=== PATIENT | male | born 1945 | race Two or more races ===

== ENCOUNTER 2017-01-23 13:07 | Inpatient (IN) | payer OTHER ==
[~2017-01-23] VITALS: Ht 172.7 cm; Wt 64.1 kg
[~2017-01-23 13:07] MED LIST: CARV6.2579 PO; Cyclobenzaprine Hcl PO; DOCU-144 PO; FAMO-95 PO; HYDR-3504 PO; LANT3I SC; LOSA1TAB20 PO; METF1000 PO; SIMV40TA7 PO; TAMS0.4C2 PO; TRAZ50TA18 PO
[2017-01-23 14:00] VITALS: BP 172/73; PULSE 72; RESP 20
[2017-01-23 14:30] VITALS: BP 157/75
[2017-01-23] MEDS ORDERED: NON-FORMULARY/PATIENT OWN MED (Simvastatin 40 MG) PO PRN (16:00)
[2017-01-23] MEDS ORDERED: CYCLOBENZAPRINE 10 MG TAB PO PRN (16:00)
[2017-01-23] MEDS ORDERED: NACL 0.9% 3 ML SYG IV SCH (16:30)
[2017-01-23] MEDS ORDERED: DOCUSATE SODIUM 100 MG CAP PO PRN (16:30)
[2017-01-23] MEDS ORDERED: BISACODYL 10 MG SUPP PR PRN (16:30)
[2017-01-23] MEDS ORDERED: GLUCOSE GEL 15 GRAM TUBE BUCCAL PRN (16:30)
[2017-01-23] MEDS ORDERED: MAGNESIUM HYDROXIDE 30ML CUP PO PRN (16:30)
[2017-01-23] MEDS ORDERED: GLUCOSE GEL 15 GRAM TUBE PO PRN ×2 (16:30)
[2017-01-23] MEDS ORDERED: GLUCAGON 1 MG INJ IM PRN (16:30)
[2017-01-23] MEDS ORDERED: DEXTROSE 50% 50 ML SYRINGE IV PRN ×2 (16:30)
[2017-01-23] MEDS ORDERED: ONDANSETRON 4 MG INJ IV PRN (16:30)
[2017-01-23] MEDS ORDERED: HYDROCODONE/APAP (5/325) TAB PO PRN (16:30)
[2017-01-23] MEDS ORDERED: APIXABAN 5 MG TABLET PO ONE (17:00)
--- NOTE | 2017-01-23 17:06 | RADRPT ---
PROCEDURE: XR Chest. CLINICAL INDICATION: Preoperative. Infected left foot. TECHNIQUE: Single frontal view. COMPARISON: None. FINDINGS: The lungs are clear. The heart size is normal. There is no pleural effusion. There is no pneumothorax. IMPRESSION: 1. Normal chest radiograph. RPTAT: QQ .Kee Odom MD, MD Date Time Electronically viewed and signed by .Kee Odom MD, on 01/23/2017 17:05 .R/
--- NOTE | 2017-01-23 17:18 | RADRPT ---
PROCEDURE: XR Left Foot. CLINICAL INDICATION: Infected left foot ulcer. TECHNIQUE: Three views. Frontal, lateral, and oblique. COMPARISON: None. FINDINGS: There is no fracture or dislocation. The soft tissues are normal. There are degenerative changes of the first metatarsal phalangeal joint with joint space narrowing a nd osteophytes. Vascular calcifications are present consistent with atherosclerosis. There is no lytic or blastic lesion. Surgical clips are present in the soft tissues of the ankle posterior laterally. IMPRESSION: 1. Degenerative changes of the first metatarsal phalangeal joint. 2. Prior surgery with clips noted in the soft tissues. 3. Atherosclerosis. RPTAT: QQ .Kee Odom MD, MD Date Time Electronically viewed and signed by .Kee Odom MD, on 01/23/2017 17:17 .R/
[2017-01-23 17:31] LABS: ADD UMIC NO; UR ASCORBIC ACID NEGATIVE (NEGATIVE); UR BILIRUBIN (Dip) NEGATIVE (NEGATIVE); UR BLOOD (Dip) NEGATIVE (NEGATIVE); UR CLARITY CLEAR (CLEAR); UR COLOR COLORLESS (YELLOW); UR GLUCOSE (Dip) NEGATIVE (NEGATIVE); UR KETONES (Dip) NEGATIVE (NEGATIVE); UR LEUKOCYTE ESTERASE (Dip) NEGATIVE Leu/ul (NEGATIVE); UR NITRITE (Dip) NEGATIVE (NEGATIVE); UR SPECIFIC GRAVITY (Dip) 1.005 (1.003-1.030); UR TOTAL PROTEIN (Dip) NEGATIVE (NEGATIVE); UR UROBILINOGEN (Dip) NEGATIVE (NEGATIVE)
[2017-01-23 17:32] LABS: BASOPHILS % 0.4 % (0.0-2.0); EOSINOPHILS # 0.5 10^3/ul (0.0-0.5); EOSINOPHILS % 6.9 % (0.0-7.0); HEMATOCRIT 34.5 % (42.0-52.0); HEMOGLOBIN 11.2 g/dl (14.0-18.0); LYMPHOCYTES % 26.8 % (15.0-51.0); MEAN CORPUSCULAR HEMOGLOBIN 29.4 pg (29.0-33.0); MEAN CORPUSCULAR HGB CONC 32.5 g/dl (32.0-37.0); MEAN CORPUSCULAR VOLUME 90.6 fl (82.0-101.0); MEAN PLATELET VOLUME 8.9 fl (7.4-10.4); MONOCYTE # 0.7 10^3/ul (0.3-0.9); NEUTROPHIL # 4.2 10^3/ul (1.6-7.5); NEUTROPHILS % 56.6 % (39.0-77.0); PLATELET COUNT 205 10^3/UL (140-415); RED BLOOD COUNT 3.81 10^6/ul (4.70-6.10); RED CELL DISTRIBUTION WIDTH 13.1 % (11.5-14.5); WHITE BLOOD COUNT 7.4 10^3/ul (4.8-10.8)
[2017-01-23 17:48] LABS: INR 1.02; PROTIME 13.4 Sec (12.2-14.2)
[2017-01-23 17:49] LABS: PARTIAL THROMBOPLASTIN TIME 34.8 Sec (25.0-35.0)
[2017-01-23 17:53] LABS: CALCIUM 9.2 mg/dl (8.4-10.2); CREATININE 0.79 mg/dl (0.61-1.24); POTASSIUM 4.5 mmol/L (3.5-5.1)
[2017-01-23] MEDS: INSULIN ASPART [NOVOLOG] 3 ML PEN SC SCH ×2 (18:04→21:00)
--- NOTE | 2017-01-23 18:25 | HP ---
Date/Time of Note Date/Time of Note DATE: 01/23/17 TIME: 18:09 Assessment/Plan VTE Prophylaxis VTE Prophylaxis Intervention: other (Patient has been on Eliquis) Assessment/Plan Assessment/Plan 71-year-old male with: 1. Ischemic pain left foot, second toe ischemia and nonhealing ulcer unfortunately failed attempt at salvation and the patient is scheduled for amputation of the second toe in a.m. by Dr. Watts N.p.o. after midnight Okay to proceed with procedure in a.m. from the medical standpoint, chest x-ray within normal, EKG stable and in chart. Vancomycin and Zosyn ordered Pain control Last dose of Eliquis was today. 2. Diabetes mellitus, continue current insulin regimen, hemoglobin A1c pending. Metformin will be held for now. 3. Hypertension: Continue outpatient medications 4. Hyperlipidemia: Continue statin therapy 5. Gastroesophageal reflux disease: New Pepcid Prophylaxis: Eliquis will be held after today's dose, continue Pepcid for GI prophylaxis Disposition: N.p.o. after midnight, OR in a.m. for amputation of second toe. HPI/ROS Admit Date/Time Admit Date/Time Jan 23, 2017 at 13:22 Hx of Present Illness Chief complaint: Left foot pain History of presenting illness: This is a 71-year-old male with history of diabetes mellitus, hypertension, hyperlipidemia, severe peripheral artery disease status post latest left femoral bypass surgery done approximately 3 months ago at [facility] by , patient was following up with Dr. Watts today at the amputation prevention clinic, and it is noted that he has ischemic pain in the left foot and unfortunately gangrene and ischemia of the left second toe, they have tried to salvage the left second toe over the past 3 weeks, he was put on antibiotics oral for the past 2 weeks and unfortunately the second toe could not be salvaged. Therefore the patient will be having surgical amputation of the second toe tomorrow. He is being admitted today for the procedure tomorrow. Patient already had cardiac clearance done 3 months ago at [facility] prior to his left femoral bypass procedure. He has not had any chest pain or new cardiac concerns since then, therefore he does not need a new cardiac clearance, chest x-ray was done here stable, EKG stable with old right bundle branch block and no acute changes. PT, PTT, INR within normal, renal function is stable and patient took his latest dose of Eliquis today, per vascular surgery it is okay for the patient to stop Eliquis after his dose today. Therefore from this medical standpoint the patient may probably proceed with a surgical procedure tomorrow morning He has been started also on vancomycin along with Zosyn. ROS Constitutional: no complaints Eyes: no complaints ENT: no complaints Respiratory: no complaints Cardiovascular: no complaints Gastrointestinal: no complaints Genitourinary: no complaints Musculoskeletal: other (Left second toe ulceration, decreased pulses) Neurologic: no complaints Endocrine: no complaints Lymphatic: no complaints Immunologic: no complaints PMH/Family/Social Past Medical History Severe peripheral arterial disease Hypertension Hyperlipidemia Diabetes mellitus, insulin requiring Esophageal reflux disease Left second toe chronic diabetic wound Past Surgical History Status post femoral bypass 3 last one 3 months ago Past Surgical Hx: other Social History Alcohol Use: none Smoking Status: Former smoker (Quit 2 years ago) Drug Use: none Exam/Review of Systems Exam Constitutional: alert, oriented, well developed Respiratory: clear to auscultation, normal air movement Cardiovascular: nl pulses, regular rate and rhythm Gastrointestinal: non-tender, soft Musculoskeletal: other (Left second toe with black toenail, ulceration noted, severe tenderness to palpation at the base of the second toe and forefoot) Extremities: other (Diminished pulses to the left forefoot, no clubbing or cyanosis noted) 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, nl mental status, nl speech, nl strength Labs Result Diagram: 01/23/17 1645 01/23/17 1645 Medications Medications Current Medications Carvedilol (Coreg) 6.25 mg BID PO ; Start 01/23/17 at 21:00 Docusate Sodium (Colace) 100 mg BID PO ; Start 01/23/17 at 21:00 Famotidine (Pepcid) 20 mg BID PO ; Start 01/23/17 at 21:00 Acetaminophen/ Hydrocodone Bitart ([place] (10/325)) 2 tab Q6H PRN PO PAIN LEVEL 6-10; Start 01/23/17 at 16:00 Trazodone HCl (Desyrel) 50 mg HS PRN PO SLEEP; Start 01/23/17 at 16:00 Losartan Potassium (Cozaar) 100 mg DAILY PO ; Start 01/24/17 at 09:00 Ondansetron HCl (Zofran Inj) 4 mg Q6H PRN IV NAUSEA AND/OR VOMITING; Start at 16:30 Acetaminophen (Tylenol Tab) 650 mg Q6H PRN PO PAIN LEVEL 1-3 OR FEVER; Start at 16:30 Acetaminophen/ Hydrocodone Bitart ([place] (5/325)) 1 tab Q6H PRN PO MODERATE PAIN LEVEL 4-6; Start 01/23/17 at 16:30 Acetaminophen/ Hydrocodone Bitart ([place] (5/325)) 2 tab Q6H PRN PO SEVERE PAIN LEVEL 7-10; Start 01/23/17 at 16:30 Morphine Sulfate (morphine) 2 mg Q4H PRN IV SEVERE PAIN LEVEL 7-10; Start 01/23 at 16:30 Docusate Sodium (Colace) 100 mg Q12H PRN PO CONSTIPATION; Start 01/23/17 at 16: 30 Magnesium Hydroxide (Milk Of Mag) 30 ml DAILY PRN PO CONSTIPATION; Start at 16:30 Bisacodyl (Dulcolax Supp) 10 mg DAILY PRN [place] CONSTIPATION; Start 01/23/17 at 16 :30 Miscellaneous Information 1 ea NOTE XX ; Start 01/23/17 at 16:30 Glucose (Glutose) 15 gm Q15M PRN PO DECREASED GLUCOSE; Start 01/23/17 at 16:30 Glucose (Glutose) 22.5 gm Q15M PRN PO DECREASED GLUCOSE; Start 01/23/17 at 16: 30 Dextrose (D50w Syringe) 25 ml Q15M PRN IV DECREASED GLUCOSE; Start 01/23/17 at 16:30 Dextrose (D50w Syringe) 50 ml Q15M PRN IV DECREASED GLUCOSE; Start 01/23/17 at 16:30 Glucagon (Glucagen) 1 mg Q15M PRN IM DECREASED GLUCOSE; Start 01/23/17 at 16:30 Glucose (Glutose) 15 gm Q15M PRN BUCCAL DECREASED GLUCOSE; Start 01/23/17 at 16 :30 Hydralazine HCl (Apresoline) 10 mg Q6H PRN IV ELEVATED BLOOD PRESSURE; Start at 16:30 Diagnostic Test (Pha) (Accu-Chek) 1 ea 02 XX ; Start 01/24/17 at 02:00 Diagnostic Test (Pha) (Accu-Chek) 1 ea 02 XX ; Start 01/24/17 at 02:00 Insulin Glargine (Lantus) 13 unit QHS SC ; Start 01/23/17 at 21:00 Tamsulosin HCl (Flomax) 0.4 mg QHS PO ; Start 01/23/17 at 21:00 Gabapentin (Neurontin) 600 mg BID PO ; Start 01/23/17 at 21:00 JOS HARDEN Jan 23, 2017 18:20
[2017-01-23] MEDS ORDERED: VANCOMYCIN IV PER PHARMACY XX SCH (18:30)
[2017-01-23] MEDS: morphine 2 MG INJ IV PRN (19:20)
[2017-01-23] MEDS ORDERED: VANCOMYCIN 1.25 GM in SOD CHLORIDE 0.9% 250 ML IVPB SCH (20:00)
[2017-01-23] MEDS ORDERED: INSULIN GLARGINE [LANtus] 3 ML PEN SC SCH (21:00)
[2017-01-23 21:09] VITALS: BP 155/71; RESP 19
--- NOTE | 2017-01-23 21:16 | CONS ---
Date/Time of Note Date/Time of Note DATE: 01/23/17 TIME: 21:15 Assessment/Plan Assessment/Plan Additional Assessment/Plan 1.Ischemic pain left foot, second toe ischemia/gangrene 2. PVD 3. Hypomagnesemia Plan: Plan for OR tomorrow for amputation Electrolytes stable BP stable continue current IVF post midnight will follow up Consultation Date/Type/Reason Admit Date/Time Jan 23, 2017 at 13:22 Date of Consultation: Jan 23, 2017 Type of Consultation: NEPHROLOGY Reason for Consultation plan for left Ray amputation of the left second toe. Referring Provider: JOS HARDEN Eyes: no complaints ENT: no complaints Respiratory: no complaints Cardiovascular: no complaints Gastrointestinal: no complaints Genitourinary: no complaints Musculoskeletal: other (Left second toe ulceration, decreased pulses) Neurologic: no complaints Lymphatic: no complaints Immunologic: no complaints Past Medical History Medical History: GERD, high cholesterol, hypertension Past Surgical History Past Surgical Hx: no surgical history, other Family History Significant Family History: no pertinent family hx Social History Alcohol Use: none Smoking Status: Former smoker (Quit 2 years ago) Drug Use: none Exam/Review of Systems Vital Signs Vitals Vital Signs Date Time Temp Pulse Resp B/P Pulse Ox O2 Delivery O2 Flow Rate FiO2 01/23/17 14:30 157/75 01/23/17 14:00 97.4 72 20 99 Room Air Exam Constitutional: alert Psych: no complaints Head: normocephalic Eyes: nl conjunctiva ENMT: nl external ears & nose Neck: non-tender, supple Respiratory: clear to auscultation, diminished breath sounds, normal air movement Cardiovascular: nl pulses, regular rate and rhythm Gastrointestinal: non-tender, soft Musculoskeletal: other (left foot gangrene ) 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, nl mental status, nl speech, nl strength Results Result Diagram: 01/23/17 1645 01/23/17 1645 Results 24 hrs Laboratory Tests Test 01/23/17 14:19 01/23/17 16:45 01/23/17 17:00 01/23/17 17:16 Bedside Glucose 115 80 White Blood Count 7.4 # Red Blood Count 3.81 L Hemoglobin 11.2 L Hematocrit 34.5 L Mean Corpuscular Volume 90.6 Mean Corpuscular Hemoglobin 29.4 Mean Corpuscular Hemoglobin Concent 32.5 Red Cell Distribution Width 13.1 Platelet Count 205 Mean Platelet Volume 8.9 # Neutrophils % 56.6 Lymphocytes % 26.8 Monocytes % 9.0 Eosinophils % 6.9 Basophils % 0.4 Nucleated Red Blood Cells % 0.0 Neutrophils # 4.2 Lymphocytes # 2.0 Monocytes # 0.7 Eosinophils # 0.5 Basophils # 0.0 Nucleated Red Blood Cells # 0.0 Prothrombin Time 13.4 Prothrombin Time Ratio 1.0 INR International Normalized Ratio 1.02 Activated Partial Thromboplast Time 34.8 Sodium Level 135 Potassium Level 4.5 Chloride Level 98 Carbon Dioxide Level 30 Anion Gap 12 Blood Urea Nitrogen 19 Creatinine 0.79 Glucose Level 81 Hemoglobin A1c 5.7 Calcium Level 9.2 Urine Color COLORLESS Urine Clarity CLEAR Urine pH 8.0 Urine Specific [place] 1.005 Urine Ketones NEGATIVE Urine Nitrite NEGATIVE Urine Bilirubin NEGATIVE Urine Urobilinogen NEGATIVE Urine Leukocyte Esterase NEGATIVE Urine Hemoglobin NEGATIVE Urine Glucose NEGATIVE Urine Total Protein NEGATIVE Medications Medications Current Medications Carvedilol (Coreg) 6.25 mg BID PO ; Start 01/23/17 at 21:00 Docusate Sodium (Colace) 100 mg BID PO ; Start 01/23/17 at 21:00 Famotidine (Pepcid) 20 mg BID PO ; Start 01/23/17 at 21:00 Acetaminophen/ Hydrocodone Bitart ([place] (10/325)) 2 tab Q6H PRN PO PAIN LEVEL 6-10; Start 01/23/17 at 16:00 Trazodone HCl (Desyrel) 50 mg HS PRN PO SLEEP; Start 01/23/17 at 16:00 Losartan Potassium (Cozaar) 100 mg DAILY PO ; Start 01/24/17 at 09:00 Ondansetron HCl (Zofran Inj) 4 mg Q6H PRN IV NAUSEA AND/OR VOMITING; Start at 16:30 Acetaminophen (Tylenol Tab) 650 mg Q6H PRN PO PAIN LEVEL 1-3 OR FEVER; Start at 16:30 Acetaminophen/ Hydrocodone Bitart ([place] (5/325)) 1 tab Q6H PRN PO MODERATE PAIN LEVEL 4-6 Last administered on 01/23/17t 18:09; Admin Dose 1 TAB; Start at 16:30 Acetaminophen/ Hydrocodone Bitart ([place] (5/325)) 2 tab Q6H PRN PO SEVERE PAIN LEVEL 7-10; Start 01/23/17 at 16:30 Morphine Sulfate (morphine) 2 mg Q4H PRN IV SEVERE PAIN LEVEL 7-10 Last administered on 01/23/17t 19:20; Admin Dose 2 MG; Start 01/23/17 at 16:30 Docusate Sodium (Colace) 100 mg Q12H PRN PO CONSTIPATION; Start 01/23/17 at 16: 30 Magnesium Hydroxide (Milk Of Mag) 30 ml DAILY PRN PO CONSTIPATION; Start at 16:30 Bisacodyl (Dulcolax Supp) 10 mg DAILY PRN [place] CONSTIPATION; Start 01/23/17 at 16 :30 Miscellaneous Information 1 ea NOTE XX ; Start 01/23/17 at 16:30 Glucose (Glutose) 15 gm Q15M PRN PO DECREASED GLUCOSE; Start 01/23/17 at 16:30 Glucose (Glutose) 22.5 gm Q15M PRN PO DECREASED GLUCOSE; Start 01/23/17 at 16: 30 Dextrose (D50w Syringe) 25 ml Q15M PRN IV DECREASED GLUCOSE; Start 01/23/17 at 16:30 Dextrose (D50w Syringe) 50 ml Q15M PRN IV DECREASED GLUCOSE; Start 01/23/17 at 16:30 Glucagon (Glucagen) 1 mg Q15M PRN IM DECREASED GLUCOSE; Start 01/23/17 at 16:30 Glucose (Glutose) 15 gm Q15M PRN BUCCAL DECREASED GLUCOSE; Start 01/23/17 at 16 :30 Hydralazine HCl (Apresoline) 10 mg Q6H PRN IV ELEVATED BLOOD PRESSURE; Start at 16:30 Diagnostic Test (Pha) (Accu-Chek) 1 ea 02 XX ; Start 01/24/17 at 02:00 Diagnostic Test (Pha) (Accu-Chek) 1 ea 02 XX ; Start 01/24/17 at 02:00 Insulin Glargine (Lantus) 13 unit QHS SC ; Start 01/23/17 at 21:00 Tamsulosin HCl (Flomax) 0.4 mg QHS PO ; Start 01/23/17 at 21:00 Gabapentin 600 mg 600 mg BID PO ; Start 01/23/17 at 21:00 Piperacillin Sod/ Tazobactam Sod 100 ml @ 200 mls/hr Q8 IVPB ; Start 01/23/17 at 22:00 Vancomycin HCl 1.25 gm/Sodium Chloride 250 ml @ 83.333 mls/ hr ONCE IVPB ; Start 01/23/17 at 20:00; Stop 01/23/17 at 22:00 Vancomycin HCl/ Sodium Chloride (Vancocin/NS) 150 ml @ 75 mls/hr Q12H IVPB ; Start 01/24/17 at 08:00 Influenza Virus Vaccine (Fluzone) 0.5 ml ONCE ONCE IM* ; Start 01/24/17 at 20:00 ; Stop 01/24/17 at 20:01 SARAVANAN JEFFERY MD Jan 23, 2017 21:16
[2017-01-23] MEDS: TAMSULOSIN (SR) 0.4 MG CAP PO SCH (21:23)
[2017-01-23] MEDS: HYDROCODONE/APAP (10/325) TAB PO PRN (21:23)
[2017-01-23] MEDS: GABAPENTIN 300 MG CAP PO SCH (21:25)
[2017-01-23] MEDS: FAMOTIDINE 20 MG TAB PO SCH (21:25)
[2017-01-23] MEDS: INSULIN GLARGINE [LANtus] 3 ML PEN SC SCH (21:43)
[2017-01-23] MEDS: traZODone 50 MG TAB PO PRN (21:44)
[2017-01-23] MEDS: DOCUSATE SODIUM 100 MG CAP PO SCH (21:45)
[2017-01-23] MEDS: ACETAMINOPHEN 325 MG TAB PO PRN (22:48)
[2017-01-23] MEDS: ACCU-CHEK XX SCH (23:37)
[2017-01-24] VITALS (16 sets, daily range): BP systolic 98–160; BP diastolic 51–70; PULSE 53–75; RESP 14–24
[2017-01-24] MEDS: PIPER-TAZO 3.375 GM IV (PMX) 100 ML IVPB SCH ×4 (00:46→22:34)
[2017-01-24] MEDS: morphine 2 MG INJ IV PRN ×3 (00:52→19:58)
[2017-01-24] MEDS: ACCU-CHEK XX SCH (02:00)
[2017-01-24 06:22] LABS: BASOPHILS % 0.5 % (0.0-2.0); EOSINOPHILS # 0.6 10^3/ul (0.0-0.5); EOSINOPHILS % 9.6 % (0.0-7.0); HEMATOCRIT 33.6 % (42.0-52.0); HEMOGLOBIN 10.9 g/dl (14.0-18.0); LYMPHOCYTES # 1.7 10^3/ul (0.8-2.9); LYMPHOCYTES % 28.7 % (15.0-51.0); MEAN CORPUSCULAR HEMOGLOBIN 29.9 pg (29.0-33.0); MEAN CORPUSCULAR HGB CONC 32.4 g/dl (32.0-37.0); MEAN CORPUSCULAR VOLUME 92.1 fl (82.0-101.0); MEAN PLATELET VOLUME 8.9 fl (7.4-10.4); MONOCYTE # 0.6 10^3/ul (0.3-0.9); MONOCYTES % 10.4 % (0.0-11.0); NEUTROPHILS % 50.5 % (39.0-77.0); PLATELET COUNT 184 10^3/UL (140-415); RED BLOOD COUNT 3.65 10^6/ul (4.70-6.10); RED CELL DISTRIBUTION WIDTH 13.2 % (11.5-14.5); WHITE BLOOD COUNT 5.9 10^3/ul (4.8-10.8)
[2017-01-24 06:54] LABS: CALCIUM 8.7 mg/dl (8.4-10.2); CREATININE 0.79 mg/dl (0.61-1.24); MAGNESIUM 1.6 mg/dl (1.7-2.5); PHOSPHORUS 4.8 mg/dl (2.5-4.9)
--- NOTE | 2017-01-24 07:57 | RADRPT ---
PROCEDURE: US Lower extremity arterial. CLINICAL INDICATION: Bilateral lower extremity pain. Infected left foot with ulcer. Left common fe moral to posterior tibial bypass graft. TECHNIQUE: Multiple sonographic images of the bilateral lower extremity arteries were obtained uti lizing olivares scale, color-flow and doppler imaging. Bilateral ABIs were performed. COMPARISON: 11/07/2016 FINDINGS: Diffuse atherosclerotic plaque. Velocities and waveforms were obtained as described below. RIGHT LEG: Right common femoral artery: 109 cm/s; biphasic waveforms Right proximal superficial femoral artery: 117 cm/s; biphasic waveforms Right mid superficial femoral artery: 140 cm/s; biphasic waveforms Right distal superficial femoral artery: 98 cm/s; monophasic waveforms Right popliteal artery: 67 cm/s; monophasic waveforms Right posterior tibial artery: 62 cm/s; monophasic waveforms Right dorsalis pedis artery: 47 cm/s; monophasic waveforms Right SARABJIT: 0.8 LEFT LEG: Left common femoral artery: 64 cm/s; monophasic waveforms Left proximal superficial femoral artery: 34 cm/s; monophasic waveforms Left mid superficial femoral artery: Occluded Left distal superficial femoral artery: Occluded Left popliteal artery: Occluded Left posterior tibial artery: Not detected proximally, 74 cm/sec with monophasic waveforms beyond t he graft Left dorsalis pedis artery: 17 cm/s; monophasic waveforms Left femoral artery and to posterior tibial artery bypass graft: Proximal : 218 cm/s; monophasic waveforms Middle : 96 cm/s; monophasic waveforms Distal : 155 cm/s; monophasic waveforms Left SARABJIT: 0.8 IMPRESSION: 1. Patent left common femoral artery to posterior tibial artery bypass with monophasic flow and sign ificant focal stenosis proximally. 2. [place] left superficial femoral artery, popliteal artery and proximal posterior tibial artery are occluded. 3. Low velocity monophasic flow in the left dorsalis pedis artery. 4. Moderate to severe stenosis in the right middle superficial femoral artery with monophasic wave f orms distally. 5. Patent right lower extremity arteries. RPTAT:AAJJ Physician Niru Date Time Electronically viewed and signed by Becky Ferreira Physician on 01/24/2017 07:57 /
[2017-01-24] MEDS: INSULIN ASPART [NOVOLOG] 3 ML PEN SC SCH ×4 (08:00→20:09)
[2017-01-24] MEDS: VANCOMYCIN 750 MG in SOD CHLORIDE 0.9% 150 ML IVPB SCH ×2 (08:09→19:58)
[2017-01-24] MEDS ORDERED: FAMOTIDINE 20 MG INJ IV SCH (09:00)
[2017-01-24] MEDS ORDERED: TAMSULOSIN (SR) 0.4 MG CAP PO SCH (09:00)
[2017-01-24] MEDS ORDERED: INSULIN GLARGINE [LANtus] 3 ML PEN SC SCH (09:00)
--- NOTE | 2017-01-24 09:31 | HPN ---
Date/Time of Note Date/Time of Note DATE: 01/24/17 TIME: 09:30 Interval H&P Admission Note Pt. seen H&P reviewed: No system changes BESS PENA MD Jan 24, 2017 09:30
--- NOTE | 2017-01-24 09:34 | CONS ---
Date/Time of Note Date/Time of Note DATE: 01/24/17 TIME: 09:33 Consultation Date/Type/Reason Admit Date/Time Jan 23, 2017 at 13:22 Hx of Present Illness Dear Doctors: Mr. 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 As of recent, patient undergone a complicated inflow and outflow procedure for left lower extremity revascularization for limb salvage and has been coming along well from the standpoint of the bypass. The patient's rest pain has resolved and has been doing well with his 2nd gangrene toe wound healing. Unfortunately, over the past week and a half he has developed a new 2nd toe swelling, redness, erythema and pain in his left foot, which we started him on trial of p.o. antibiotics. It seems to have not been improving his symptoms. The patient still continued to have pain and erythema despite being on p.o. antibiotics. The patient has reported some chills. No fevers. Denies rest pain or claudication for now. PHYSICAL EXAMINATION: GENERAL APPEARANCE: Alert, oriented x3. CHEST: Clear to auscultation bilaterally. CARDIAC: S1-S2 present. ABDOMEN: Soft, nontender, nondistended. Bowel sounds positive. HEENT: Normocephalic, atraumatic. PERRLA. EOMI. Mucosa moist. NECK: Supple. No carotid bruit. LOWER EXTREMITIES: Right lower extremity: Palpable femoral pulse. Nonpalpable pedal pulse. Motor AND sensory intact. Capillary refill 3-4 seconds. Left lower extremity: Palpable femoral pulse. Palpable graft below the knee. Dopplerable biphasic signal of the bypass. Dopplerable biphasic signal of the inflow bypass from the external iliac to the 2nd perforating branch of the profunda. Left 2nd toe with gangrene in the mid aspect with erythema, edema and pain in that area. ASSESSMENT AND PLAN: 1. Bilateral lower extremity atherosclerosis with left lower extremity gangrene: It seems the patient has been doing well from the standpoint of the left lower extremity revascularization. Unfortunately, the patient has developed a 2nd toe diabetic foot infection, in which he will require an amputation of the 2nd toe at this point. We have given the patient adequate amount of time for wound healing and p.o. antibiotics that seem to be refractory. The patient will be admitted for intravenous antibiotics and amputation of that 2nd toe. 2. Optimize vascular status (blood pressure meds, diet, nutrition, exercise, sugar control, antiplatelets). Discussed findings, plan and management with the patient. He understands. Thank you for allowing us to partake in the care of your patient. Please call with any questions. Eyes: no complaints ENT: no complaints Respiratory: no complaints Cardiovascular: no complaints Gastrointestinal: no complaints Genitourinary: no complaints Musculoskeletal: other (Left second toe ulceration, decreased pulses) Neurologic: no complaints Lymphatic: no complaints Immunologic: no complaints Past Surgical History Past Surgical Hx: other Social History Alcohol Use: none Smoking Status: Former smoker (Quit 2 years ago) Drug Use: none Exam/Review of Systems Vital Signs Vitals Vital Signs Date Time Temp Pulse Resp B/P Pulse Ox O2 Delivery O2 Flow Rate FiO2 01/24/17 08:00 98.8 62 18 114/52 96 01/23/17 14:00 Room Air Intake and Output 01/23/17 01/23/17 01/24/17 15:00 23:00 07:00 Intake Total 0 ml 550 ml Output Total 500 ml 720 ml Balance -500 ml -170 ml Results Result Diagram: 01/24/17 0533 01/24/17 0533 Results 24 hrs Laboratory Tests Test 01/23/17 14:19 01/23/17 16:45 01/23/17 17:00 01/23/17 17:16 Bedside Glucose 115 80 White Blood Count 7.4 # Red Blood Count 3.81 L Hemoglobin 11.2 L Hematocrit 34.5 L Mean Corpuscular Volume 90.6 Mean Corpuscular Hemoglobin 29.4 Mean Corpuscular Hemoglobin Concent 32.5 Red Cell Distribution Width 13.1 Platelet Count 205 Mean Platelet Volume 8.9 # Neutrophils % 56.6 Lymphocytes % 26.8 Monocytes % 9.0 Eosinophils % 6.9 Basophils % 0.4 Nucleated Red Blood Cells % 0.0 Neutrophils # 4.2 Lymphocytes # 2.0 Monocytes # 0.7 Eosinophils # 0.5 Basophils # 0.0 Nucleated Red Blood Cells # 0.0 Prothrombin Time 13.4 Prothrombin Time Ratio 1.0 INR International Normalized Ratio 1.02 Activated Partial Thromboplast Time 34.8 Sodium Level 135 Potassium Level 4.5 Chloride Level 98 Carbon Dioxide Level 30 Anion Gap 12 Blood Urea Nitrogen 19 Creatinine 0.79 Glucose Level 81 Hemoglobin A1c 5.7 Calcium Level 9.2 Urine Color COLORLESS Urine Clarity CLEAR Urine pH 8.0 Urine Specific [place] 1.005 Urine Ketones NEGATIVE Urine Nitrite NEGATIVE Urine Bilirubin NEGATIVE Urine Urobilinogen NEGATIVE Urine Leukocyte Esterase NEGATIVE Urine Hemoglobin NEGATIVE Urine Glucose NEGATIVE Urine Total Protein NEGATIVE Test 01/23/17 21:40 01/24/17 05:33 01/24/17 08:07 01/24/17 08:34 Bedside Glucose 179 67 L 173 White Blood Count 5.9 # Red Blood Count 3.65 L Hemoglobin 10.9 L Hematocrit 33.6 L Mean Corpuscular Volume 92.1 Mean Corpuscular Hemoglobin 29.9 Mean Corpuscular Hemoglobin Concent 32.4 Red Cell Distribution Width 13.2 Platelet Count 184 Mean Platelet Volume 8.9 Neutrophils % 50.5 Lymphocytes % 28.7 Monocytes % 10.4 Eosinophils % 9.6 H Basophils % 0.5 Nucleated Red Blood Cells % 0.0 Neutrophils # 3.0 Lymphocytes # 1.7 Monocytes # 0.6 Eosinophils # 0.6 H Basophils # 0.0 Nucleated Red Blood Cells # 0.0 Sodium Level 138 Potassium Level 4.0 Chloride Level 102 Carbon Dioxide Level 29 Anion Gap 11 Blood Urea Nitrogen 18 Creatinine 0.79 Glucose Level 74 Calcium Level 8.7 Phosphorus Level 4.8 Magnesium Level 1.6 L Medications Medications Current Medications Carvedilol (Coreg) 6.25 mg BID PO Last administered on 01/23/17 21:24; Admin Dose 6.25 MG; Start 01/23/17 at 21:00 Docusate Sodium (Colace) 100 mg BID PO Last administered on 01/23/17 21:45; Admin Dose 100 MG; Start 01/23/17 at 21:00 Famotidine (Pepcid) 20 mg BID PO Last administered on 01/23/17 21:25; Admin Dose 20 MG; Start 01/23/17 at 21:00 Acetaminophen/ Hydrocodone Bitart ([place] (10)) 2 tab Q6H PRN PO PAIN LEVEL 6-10 Last administered on 01/23/17 21:23; Admin Dose 2 TAB; Start 01/23/17 at 16:00 Trazodone HCl (Desyrel) 50 mg HS PRN PO SLEEP Last administered on 01/23/17 21 :44; Admin Dose 50 MG; Start 01/23/17 at 16:00 Losartan Potassium (Cozaar) 100 mg DAILY PO ; Start 01/24/17 at 09:00 Ondansetron HCl (Zofran Inj) 4 mg Q6H PRN IV NAUSEA AND/OR VOMITING; Start at 16:30 Acetaminophen (Tylenol Tab) 650 mg Q6H PRN PO PAIN LEVEL 1-3 OR FEVER Last administered on 01/23/17 22:48; Admin Dose 650 MG; Start 01/23/17 at 16:30 Acetaminophen/ Hydrocodone Bitart ([place] (5/325)) 1 tab Q6H PRN PO MODERATE PAIN LEVEL 4-6 Last administered on 01/23/17 18:09; Admin Dose 1 TAB; Start at 16:30 Acetaminophen/ Hydrocodone Bitart ([place] (5/325)) 2 tab Q6H PRN PO SEVERE PAIN LEVEL 7-10; Start 01/23/17 at 16:30 Morphine Sulfate (morphine) 2 mg Q4H PRN IV SEVERE PAIN LEVEL 7-10 Last administered on 01/24/17 04:49; Admin Dose 2 MG; Start 01/23/17 at 16:30 Docusate Sodium (Colace) 100 mg Q12H PRN PO CONSTIPATION; Start 01/23/17 at 16: 30 Magnesium Hydroxide (Milk Of Mag) 30 ml DAILY PRN PO CONSTIPATION; Start at 16:30 Bisacodyl (Dulcolax Supp) 10 mg DAILY PRN [place] CONSTIPATION; Start 01/23/17 at 16 :30 Miscellaneous Information 1 ea NOTE XX ; Start 01/23/17 at 16:30 Glucose (Glutose) 15 gm Q15M PRN PO DECREASED GLUCOSE; Start 01/23/17 at 16:30 Glucose (Glutose) 22.5 gm Q15M PRN PO DECREASED GLUCOSE; Start 01/23/17 at 16: 30 Dextrose (D50w Syringe) 25 ml Q15M PRN IV DECREASED GLUCOSE Last administered on 01/24/17 08:12; Admin Dose 25 ML; Start 01/23/17 at 16:30 Dextrose (D50w Syringe) 50 ml Q15M PRN IV DECREASED GLUCOSE; Start 01/23/17 at 16:30 Glucagon (Glucagen) 1 mg Q15M PRN IM DECREASED GLUCOSE; Start 01/23/17 at 16:30 Glucose (Glutose) 15 gm Q15M PRN BUCCAL DECREASED GLUCOSE; Start 01/23/17 at 16 :30 Hydralazine HCl (Apresoline) 10 mg Q6H PRN IV ELEVATED BLOOD PRESSURE; Start at 16:30 Diagnostic Test (Pha) (Accu-Chek) 1 ea 02 XX ; Start 01/24/17 at 02:00 Diagnostic Test (Pha) (Accu-Chek) 1 ea 02 XX ; Start 01/24/17 at 02:00 Insulin Glargine (Lantus) 13 unit QHS SC Last administered on 01/23/17 21:43; Admin Dose 13 UNIT; Start 01/23/17 at 21:00 Tamsulosin HCl (Flomax) 0.4 mg QHS PO Last administered on 01/23/17 21:23; Admin Dose 0.4 MG; Start 01/23/17 at 21:00 Gabapentin 600 mg 600 mg BID PO Last administered on 01/23/17 21:25; Admin Dose 600 MG; Start 01/23/17 at 21:00 Piperacillin Sod/ Tazobactam Sod 100 ml @ 200 mls/hr Q8 IVPB Last administered on 01/24/17 05:46; Admin Dose 200 MLS/HR; Start 01/23/17 at 22:00 Vancomycin HCl/ Sodium Chloride (Vancocin/NS) 150 ml @ 75 mls/hr Q12H IVPB Last administered on 01/24/17 08:09; Admin Dose 75 MLS/HR; Start 01/24/17 at 08 :00 Influenza Virus Vaccine (Fluzone) 0.5 ml ONCE ONCE IM* ; Start 01/24/17 at 20:00 ; Stop 01/24/17 at 20:01 BESS PENA MD Jan 24, 2017 09:34
[2017-01-24] MEDS ORDERED: LIDOCAINE 1% (MPF) 30 ML INJ ONE (09:37)
[2017-01-24] MEDS ORDERED: POLYMYXIN/BACITRACIN 1L IRRIG ONE (09:37)
--- NOTE | 2017-01-24 09:37 | SIPON ---
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
[2017-01-24] MEDS ORDERED: MAGNESIUM SULFATE 2 GM/50 ML 50 ML IVPB ONE (10:00)
[2017-01-24] MEDS ORDERED: ACETAMINOPHEN 1000MG/100ML IV 100 ML IVPB ONE (11:00)
[2017-01-24] MEDS ORDERED: LIDOCAINE 1% (MPF) 5 ML VIAL SC ONE (11:00)
--- NOTE | 2017-01-24 11:11 | OPR ---
DATE OF OPERATION: 01/24/2017 PREOPERATIVE DIAGNOSIS: Left second toe gangrene. POSTOPERATIVE DIAGNOSIS: Left second toe gangrene. OPERATIVE PROCEDURE: Ray amputation of the left second toe. COMPLICATIONS: None. ANESTHESIA: Local. SPECIMENS: Sent to pathology. ESTIMATED BLOOD LOSS: Minimal. INDICATIONS: This is a 71-year-old gentleman who presented to us with left lower extremity rest pain and second toe gangrene, in which he had undergone multiple left lower extremity revascularizations with outside hospitals. Patient was evaluated by us for tertiary opinion, in which he underwent prolonged left lower extremity limb salvage procedure involving inflow and outflow bypass. The patient postoperatively has done well over the past 3 months. His left lower extremity rest pain has resolved. He has become ambulatory. He has been able to quite change his quality of life. Unfortunately the second toe gangrene had been treated locally with local wound care and p.o. antibiotics in order to salvage. However, the patient's left second toe had tendon exposed and had recurrence of infection, which was refractory to p.o. antibiotics and required to be amputated. Alternatives, risks, and benefits were discussed with the patient involving, but not limited to, myocardial infarction, , stroke, bleeding, infection, nerve injury, limb loss, and patient has agreed to proceed. DESCRIPTION OF PROCEDURE: The patient was brought into the operating room and placed in supine position. His arms were placed at 80 degrees and normal bony prominences were padded. Anesthesia team had placed appropriate lines. Time-out and the correct side was marked and confirmed. The patient's left lower extremity was circumferentially prepped and draped in usual standard sterile fashion. Using 20 mL of 1 percent lidocaine, local anesthesia was provided in the region of the left second toe. At this point, using a number 15 blade, circumferential incision was made around the base of the second toe. Upon the completion of that, using a rongeur, the bone was debrided down to the second metatarsal head. The cartilage was removed at that point and the patient's infected toe was removed. No pus was identified at the base of the wound and healthy tissue was identified with good bleeding. At this point, using a 3-0 nylon suture, the wound was closed. The wound was irrigated with saline as well prior to closure. Patient tolerated the procedure well, was taken to the postanesthesia care unit in stable condition. The wound was dressed with Xeroform, 4 x 4, Kerlix, and Andres wrap. Dictated By: Andrea Watts MD /[email or web address] /Document#: [id number] MTDD
[2017-01-24] MEDS: FAMOTIDINE 20 MG TAB PO SCH ×2 (12:46→20:20)
[2017-01-24] MEDS: DOCUSATE SODIUM 100 MG CAP PO SCH ×2 (12:46→19:59)
[2017-01-24] MEDS: GABAPENTIN 300 MG CAP PO SCH ×2 (12:47→19:58)
[2017-01-24] MEDS: LOSARTAN 50 MG TAB PO SCH (12:48)
[2017-01-24] MEDS: HYDROCODONE/APAP (5/325) TAB PO PRN ×2 (12:56→18:26)
--- NOTE | 2017-01-24 14:06 | RADRPT ---
Vent Rate: 59 bpm RR Interval: 0 msec LA Interval: 170 msec QRS Duration: 122 msec QT Interval: 452 msec QTC Interval: 447 msec P-R-T [place]: 54 - -6 - 54 degrees Sinus bradycardia Right bundle branch block Abnormal ECG Electronically Signed By: Pako Foy [id number]
--- NOTE | 2017-01-24 15:15 | PN ---
Date/Time of Note Date/Time of Note DATE: 01/24/17 TIME: 14:41 Assessment/Plan VTE Prophylaxis VTE Prophylaxis Intervention: SCD's Lines/Catheters IV Catheter Type (from Nrs): [place] Urinary Cath still in place: No Assessment/Plan Assessment/Plan 71-year-old male with: 1. Ischemic pain left foot, second toe ischemia/gangrene, s/p amputation of 2nd toe today POD#0 PICC line placement today Continue Vancomycin and Zosyn Pain control Eliquis was today. 2. Diabetes mellitus, continue current insulin regimen, A1c 5.7. Metformin will be held for now. 3. Hypertension: Continue outpatient medications 4. Hyperlipidemia: Continue statin therapy 5. Gastroesophageal reflux disease: Continue Pepcid Prophylaxis: Eliquis to be resumed in AM, continue Pepcid for GI prophylaxis Disposition: S/p amputation of 2nd left toe, follow up further recs from Vascular Surgery. Patient would like to go to a rehabilitation center, preferably [facility], at the time of discharge. Subjective 24 Hr Interval Summary Free Text/Dictation Patient doing well postoperatively, he is status post amputation of his left second toe this morning. No complaints and he reports less pain from his left foot. PICC line placement today, patient already expressed that he would want to go to a rehabilitation center, [facility] at the time of discharge, hopefully sometime this weekend. Exam/Review of Systems Vital Signs Vitals Vital Signs Date Time Temp Pulse Resp B/P Pulse Ox O2 Delivery O2 Flow Rate FiO2 01/24/17 11:29 98.6 53 16 140/62 96 Room Air Intake and Output 01/23/17 01/23/17 01/24/17 15:00 23:00 07:00 Intake Total 0 ml 550 ml Output Total 500 ml 720 ml Balance -500 ml -170 ml Exam Constitutional: alert, oriented, well developed Respiratory: clear to auscultation, normal air movement Cardiovascular: nl pulses, regular rate and rhythm Gastrointestinal: non-tender, soft Musculoskeletal: nl extremities to inspection, other (Patient has a bandage on his left foot) Neurological: [employer] II-XII intact, nl mental status, nl speech, nl strength Results Result Diagram: 01/24/17 0533 01/24/17 0533 Results 24 hrs Laboratory Tests Test 01/23/17 16:45 01/23/17 17:00 01/23/17 17:16 01/23/17 21:40 White Blood Count 7.4 # Red Blood Count 3.81 L Hemoglobin 11.2 L Hematocrit 34.5 L Mean Corpuscular Volume 90.6 Mean Corpuscular Hemoglobin 29.4 Mean Corpuscular Hemoglobin Concent 32.5 Red Cell Distribution Width 13.1 Platelet Count 205 Mean Platelet Volume 8.9 # Neutrophils % 56.6 Lymphocytes % 26.8 Monocytes % 9.0 Eosinophils % 6.9 Basophils % 0.4 Nucleated Red Blood Cells % 0.0 Neutrophils # 4.2 Lymphocytes # 2.0 Monocytes # 0.7 Eosinophils # 0.5 Basophils # 0.0 Nucleated Red Blood Cells # 0.0 Prothrombin Time 13.4 Prothrombin Time Ratio 1.0 INR International Normalized Ratio 1.02 Activated Partial Thromboplast Time 34.8 Sodium Level 135 Potassium Level 4.5 Chloride Level 98 Carbon Dioxide Level 30 Anion Gap 12 Blood Urea Nitrogen 19 Creatinine 0.79 Glucose Level 81 Hemoglobin A1c 5.7 Calcium Level 9.2 Urine Color COLORLESS Urine Clarity CLEAR Urine pH 8.0 Urine Specific [place] 1.005 Urine Ketones NEGATIVE Urine Nitrite NEGATIVE Urine Bilirubin NEGATIVE Urine Urobilinogen NEGATIVE Urine Leukocyte Esterase NEGATIVE Urine Hemoglobin NEGATIVE Urine Glucose NEGATIVE Urine Total Protein NEGATIVE Bedside Glucose 80 179 Test 01/24/17 05:33 01/24/17 08:07 01/24/17 08:34 01/24/17 10:31 White Blood Count 5.9 # Red Blood Count 3.65 L Hemoglobin 10.9 L Hematocrit 33.6 L Mean Corpuscular Volume 92.1 Mean Corpuscular Hemoglobin 29.9 Mean Corpuscular Hemoglobin Concent 32.4 Red Cell Distribution Width 13.2 Platelet Count 184 Mean Platelet Volume 8.9 Neutrophils % 50.5 Lymphocytes % 28.7 Monocytes % 10.4 Eosinophils % 9.6 H Basophils % 0.5 Nucleated Red Blood Cells % 0.0 Neutrophils # 3.0 Lymphocytes # 1.7 Monocytes # 0.6 Eosinophils # 0.6 H Basophils # 0.0 Nucleated Red Blood Cells # 0.0 Sodium Level 138 Potassium Level 4.0 Chloride Level 102 Carbon Dioxide Level 29 Anion Gap 11 Blood Urea Nitrogen 18 Creatinine 0.79 Glucose Level 74 Calcium Level 8.7 Phosphorus Level 4.8 Magnesium Level 1.6 L Bedside Glucose 67 L 173 82 Test 01/24/17 11:36 Bedside Glucose 82 Medications Medications Current Medications Carvedilol (Coreg) 6.25 mg BID PO Last administered on 01/24/17 12:47; Admin Dose 6.25 MG; Start 01/23/17 at 21:00 Docusate Sodium (Colace) 100 mg BID PO Last administered on 01/24/17 12:46; Admin Dose 100 MG; Start 01/23/17 at 21:00 Famotidine (Pepcid) 20 mg BID PO Last administered on 01/24/17 12:46; Admin Dose 20 MG; Start 01/23/17 at 21:00 Acetaminophen/ Hydrocodone Bitart ([place] (10/325)) 2 tab Q6H PRN PO PAIN LEVEL 6-10 Last administered on 01/23/17 21:23; Admin Dose 2 TAB; Start 01/23/17 at 16:00 Trazodone HCl (Desyrel) 50 mg HS PRN PO SLEEP Last administered on 01/23/17 21 :44; Admin Dose 50 MG; Start 01/23/17 at 16:00 Losartan Potassium (Cozaar) 100 mg DAILY PO Last administered on 01/24/17 12: 48; Admin Dose 100 MG; Start 01/24/17 at 09:00 Ondansetron HCl (Zofran Inj) 4 mg Q6H PRN IV NAUSEA AND/OR VOMITING; Start at 16:30 Acetaminophen (Tylenol Tab) 650 mg Q6H PRN PO PAIN LEVEL 1-3 OR FEVER Last administered on 01/23/17 22:48; Admin Dose 650 MG; Start 01/23/17 at 16:30 Acetaminophen/ Hydrocodone Bitart ([place] (5/325)) 1 tab Q6H PRN PO MODERATE PAIN LEVEL 4-6 Last administered on 01/23/17 18:09; Admin Dose 1 TAB; Start at 16:30 Acetaminophen/ Hydrocodone Bitart ([place] (5/325)) 2 tab Q6H PRN PO SEVERE PAIN LEVEL 7-10 Last administered on 01/24/17 12:56; Admin Dose 2 TAB; Start at 16:30 Morphine Sulfate (morphine) 2 mg Q4H PRN IV SEVERE PAIN LEVEL 7-10 Last administered on 01/24/17 04:49; Admin Dose 2 MG; Start 01/23/17 at 16:30 Docusate Sodium (Colace) 100 mg Q12H PRN PO CONSTIPATION; Start 01/23/17 at 16: 30 Magnesium Hydroxide (Milk Of Mag) 30 ml DAILY PRN PO CONSTIPATION; Start at 16:30 Bisacodyl (Dulcolax Supp) 10 mg DAILY PRN [place] CONSTIPATION; Start 01/23/17 at 16 :30 Miscellaneous Information 1 ea NOTE XX ; Start 01/23/17 at 16:30 Glucose (Glutose) 15 gm Q15M PRN PO DECREASED GLUCOSE; Start 01/23/17 at 16:30 Glucose (Glutose) 22.5 gm Q15M PRN PO DECREASED GLUCOSE; Start 01/23/17 at 16: 30 Dextrose (D50w Syringe) 25 ml Q15M PRN IV DECREASED GLUCOSE Last administered on 01/24/17 08:12; Admin Dose 25 ML; Start 01/23/17 at 16:30 Dextrose (D50w Syringe) 50 ml Q15M PRN IV DECREASED GLUCOSE; Start 01/23/17 at 16:30 Glucagon (Glucagen) 1 mg Q15M PRN IM DECREASED GLUCOSE; Start 01/23/17 at 16:30 Glucose (Glutose) 15 gm Q15M PRN BUCCAL DECREASED GLUCOSE; Start 01/23/17 at 16 :30 Hydralazine HCl (Apresoline) 10 mg Q6H PRN IV ELEVATED BLOOD PRESSURE; Start at 16:30 Diagnostic Test (Pha) (Accu-Chek) 1 ea 02 XX ; Start 01/24/17 at 02:00 Diagnostic Test (Pha) (Accu-Chek) 1 ea 02 XX ; Start 01/24/17 at 02:00 Insulin Glargine (Lantus) 13 unit QHS SC Last administered on 01/23/17 21:43; Admin Dose 13 UNIT; Start 01/23/17 at 21:00 Tamsulosin HCl (Flomax) 0.4 mg QHS PO Last administered on 01/23/17 21:23; Admin Dose 0.4 MG; Start 01/23/17 at 21:00 Gabapentin 600 mg 600 mg BID PO Last administered on 01/24/17 12:47; Admin Dose 600 MG; Start 01/23/17 at 21:00 Piperacillin Sod/ Tazobactam Sod 100 ml @ 200 mls/hr Q8 IVPB Last administered on 01/24/17 05:46; Admin Dose 200 MLS/HR; Start 01/23/17 at 22:00 Vancomycin HCl/ Sodium Chloride (Vancocin/NS) 150 ml @ 75 mls/hr Q12H IVPB Last administered on 01/24/17 08:09; Admin Dose 75 MLS/HR; Start 01/24/17 at 08 :00 Influenza Virus Vaccine (Fluzone) 0.5 ml ONCE ONCE IM* ; Start 01/24/17 at 20:00 ; Stop 01/24/17 at 20:01 Miscellaneous Information (*Rx Drug Level Order Reminder*) 1 ONCE ONCE XX ; Start 01/25/17 at 07:00; Stop 01/25/17 at 07:01 JOS HARDEN Jan 24, 2017 15:15
--- NOTE | 2017-01-24 18:02 | CONS ---
Date/Time of Note Date/Time of Note DATE: 01/24/17 TIME: 18:01 Assessment/Plan Assessment/Plan Additional Assessment/Plan 1. Hypomagnesemia 2.Ischemic pain left foot, second toe ischemia/gangrene, s/p amputation of 2nd toe today 3. PVD 4. HTN 5. HL Plan: s/p Surgery today magneisum replacement for hypomagnesemia IVF as orderd, IV abx zosyn + vancomycin renally dose all abx, BP stable Consultation Date/Type/Reason Admit Date/Time Jan 23, 2017 at 13:22 Initial Consult Date 01/23/17 Type of Consultation: NEPHROLOGY Referring Provider: JOS HARDEN 24 HR Interval Summary Free Text/Dictation s/p ray amputation left second toe , Bp stable mag low Exam/Review of Systems Vital Signs Vitals Vital Signs Date Time Temp Pulse Resp B/P Pulse Ox O2 Delivery O2 Flow Rate FiO2 01/24/17 14:00 98.8 60 18 106/56 96 01/24/17 11:29 Room Air Intake and Output 01/23/17 01/23/17 01/24/17 15:00 23:00 07:00 Intake Total 0 ml 550 ml Output Total 500 ml 720 ml Balance -500 ml -170 ml Exam Constitutional: alert Respiratory: clear to auscultation, diminished breath sounds, normal air movement Cardiovascular: nl pulses, regular rate and rhythm Gastrointestinal: non-tender, soft Musculoskeletal: other (left foot gangrene ) 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, nl mental status, nl speech, nl strength Results Result Diagram: 01/24/17 0533 01/24/17 0533 Results 24 hrs Laboratory Tests Test 01/23/17 21:40 01/24/17 05:33 01/24/17 08:07 01/24/17 08:34 Bedside Glucose 179 67 L 173 White Blood Count 5.9 # Red Blood Count 3.65 L Hemoglobin 10.9 L Hematocrit 33.6 L Mean Corpuscular Volume 92.1 Mean Corpuscular Hemoglobin 29.9 Mean Corpuscular Hemoglobin Concent 32.4 Red Cell Distribution Width 13.2 Platelet Count 184 Mean Platelet Volume 8.9 Neutrophils % 50.5 Lymphocytes % 28.7 Monocytes % 10.4 Eosinophils % 9.6 H Basophils % 0.5 Nucleated Red Blood Cells % 0.0 Neutrophils # 3.0 Lymphocytes # 1.7 Monocytes # 0.6 Eosinophils # 0.6 H Basophils # 0.0 Nucleated Red Blood Cells # 0.0 Sodium Level 138 Potassium Level 4.0 Chloride Level 102 Carbon Dioxide Level 29 Anion Gap 11 Blood Urea Nitrogen 18 Creatinine 0.79 Glucose Level 74 Calcium Level 8.7 Phosphorus Level 4.8 Magnesium Level 1.6 L Test 01/24/17 10:31 01/24/17 11:36 01/24/17 16:40 Bedside Glucose 82 82 156 Medications Medications Current Medications Carvedilol (Coreg) 6.25 mg BID PO Last administered on 01/24/17 12:47; Admin Dose 6.25 MG; Start 01/23/17 at 21:00 Docusate Sodium (Colace) 100 mg BID PO Last administered on 01/24/17 12:46; Admin Dose 100 MG; Start 01/23/17 at 21:00 Famotidine (Pepcid) 20 mg BID PO Last administered on 01/24/17 12:46; Admin Dose 20 MG; Start 01/23/17 at 21:00 Acetaminophen/ Hydrocodone Bitart ([place] (10/325)) 2 tab Q6H PRN PO PAIN LEVEL 6-10 Last administered on 01/23/17 21:23; Admin Dose 2 TAB; Start 01/23/17 at 16:00 Trazodone HCl (Desyrel) 50 mg HS PRN PO SLEEP Last administered on 01/23/17 21 :44; Admin Dose 50 MG; Start 01/23/17 at 16:00 Losartan Potassium (Cozaar) 100 mg DAILY PO Last administered on 01/24/17 12: 48; Admin Dose 100 MG; Start 01/24/17 at 09:00 Ondansetron HCl (Zofran Inj) 4 mg Q6H PRN IV NAUSEA AND/OR VOMITING; Start at 16:30 Acetaminophen (Tylenol Tab) 650 mg Q6H PRN PO PAIN LEVEL 1-3 OR FEVER Last administered on 01/23/17 22:48; Admin Dose 650 MG; Start 01/23/17 at 16:30 Acetaminophen/ Hydrocodone Bitart ([place] (5/325)) 1 tab Q6H PRN PO MODERATE PAIN LEVEL 4-6 Last administered on 01/23/17 18:09; Admin Dose 1 TAB; Start at 16:30 Acetaminophen/ Hydrocodone Bitart ([place] (5/325)) 2 tab Q6H PRN PO SEVERE PAIN LEVEL 7-10 Last administered on 01/24/17 12:56; Admin Dose 2 TAB; Start at 16:30 Morphine Sulfate (morphine) 2 mg Q4H PRN IV SEVERE PAIN LEVEL 7-10 Last administered on 01/24/17 04:49; Admin Dose 2 MG; Start 01/23/17 at 16:30 Docusate Sodium (Colace) 100 mg Q12H PRN PO CONSTIPATION; Start 01/23/17 at 16: 30 Magnesium Hydroxide (Milk Of Mag) 30 ml DAILY PRN PO CONSTIPATION; Start at 16:30 Bisacodyl (Dulcolax Supp) 10 mg DAILY PRN [place] CONSTIPATION; Start 01/23/17 at 16 :30 Miscellaneous Information 1 ea NOTE XX ; Start 01/23/17 at 16:30 Glucose (Glutose) 15 gm Q15M PRN PO DECREASED GLUCOSE; Start 01/23/17 at 16:30 Glucose (Glutose) 22.5 gm Q15M PRN PO DECREASED GLUCOSE; Start 01/23/17 at 16: 30 Dextrose (D50w Syringe) 25 ml Q15M PRN IV DECREASED GLUCOSE Last administered on 01/24/17 08:12; Admin Dose 25 ML; Start 01/23/17 at 16:30 Dextrose (D50w Syringe) 50 ml Q15M PRN IV DECREASED GLUCOSE; Start 01/23/17 at 16:30 Glucagon (Glucagen) 1 mg Q15M PRN IM DECREASED GLUCOSE; Start 01/23/17 at 16:30 Glucose (Glutose) 15 gm Q15M PRN BUCCAL DECREASED GLUCOSE; Start 01/23/17 at 16 :30 Hydralazine HCl (Apresoline) 10 mg Q6H PRN IV ELEVATED BLOOD PRESSURE; Start at 16:30 Diagnostic Test (Pha) (Accu-Chek) 1 ea 02 XX ; Start 01/24/17 at 02:00 Diagnostic Test (Pha) (Accu-Chek) 1 ea 02 XX ; Start 01/24/17 at 02:00 Insulin Glargine (Lantus) 13 unit QHS SC Last administered on 01/23/17 21:43; Admin Dose 13 UNIT; Start 01/23/17 at 21:00 Tamsulosin HCl (Flomax) 0.4 mg QHS PO Last administered on 01/23/17 21:23; Admin Dose 0.4 MG; Start 01/23/17 at 21:00 Gabapentin 600 mg 600 mg BID PO Last administered on 01/24/17 12:47; Admin Dose 600 MG; Start 01/23/17 at 21:00 Piperacillin Sod/ Tazobactam Sod 100 ml @ 200 mls/hr Q8 IVPB Last administered on 01/24/17 14:41; Admin Dose 200 MLS/HR; Start 01/23/17 at 22:00 Vancomycin HCl/ Sodium Chloride (Vancocin/NS) 150 ml @ 75 mls/hr Q12H IVPB Last administered on 01/24/17 08:09; Admin Dose 75 MLS/HR; Start 01/24/17 at 08 :00 Influenza Virus Vaccine (Fluzone) 0.5 ml ONCE ONCE IM* ; Start 01/24/17 at 20:00 ; Stop 01/24/17 at 20:01 Miscellaneous Information (*Rx Drug Level Order Reminder*) 1 ONCE ONCE XX ; Start 01/25/17 at 07:00; Stop 01/25/17 at 07:01 Apixaban (Eliquis) 5 mg BID PO ; Start 01/25/17 at 09:00 SARAVANAN JEFFERY MD Jan 24, 2017 18:02
--- NOTE | 2017-01-24 18:59 | PN ---
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 -Discussed findings, plan and management with the patient. He understands. -Thank you for allowing us to partake in the care of your patient. Please call with any questions. Problems: Subjective 24 Hr Interval Summary Constitutional: no complaints Exam/Review of Systems Vital Signs Vitals Vital Signs Date Time Temp Pulse Resp B/P Pulse Ox O2 Delivery O2 Flow Rate FiO2 01/24/17 14:00 98.8 60 18 106/56 96 01/24/17 11:29 Room Air Intake and Output 01/23/17 01/23/17 01/24/17 15:00 23:00 07:00 Intake Total 0 ml 550 ml Output Total 500 ml 720 ml Balance -500 ml -170 ml Exam Free Text/Dictation LLE DRESSING Intact and dry Results Result Diagram: 01/24/17 0533 01/24/17 0533 BESS PENA MD Jan 24, 2017 18:59
[2017-01-24] MEDS: TAMSULOSIN (SR) 0.4 MG CAP PO SCH (19:59)
[2017-01-24] MEDS ORDERED: INFLUENZA VIRUS VACCINE 0.5 ML SYG IM* ONE (20:00)
[2017-01-24] MEDS: INSULIN GLARGINE [LANtus] 3 ML PEN SC SCH (20:08)
[2017-01-24] MEDS: APIXABAN 5 MG TABLET PO SCH (20:20)
[2017-01-24] MEDS: traZODone 50 MG TAB PO PRN (22:45)
[2017-01-25] MEDS: HYDROCODONE/APAP (10/325) TAB PO PRN ×3 (00:45→22:43)
[2017-01-25] MEDS: ACCU-CHEK XX SCH ×4 (01:51→20:24)
[2017-01-25 02:00] VITALS: BP 115/58; RESP 18
[2017-01-25] MEDS: HYDROCODONE/APAP (5/325) TAB PO PRN ×2 (02:10→03:53)
[2017-01-25] MEDS: PIPER-TAZO 3.375 GM IV (PMX) 100 ML IVPB SCH ×2 (05:04→14:39)
[2017-01-25] MEDS: morphine 2 MG INJ IV PRN ×3 (07:46→19:09)
[2017-01-25] MEDS: INSULIN ASPART [NOVOLOG] 3 ML PEN SC SCH ×4 (07:53→20:21)
[2017-01-25 08:00] VITALS: BP 148/65; RESP 18
[2017-01-25 08:19] LABS: BASOPHILS % 0.6 % (0.0-2.0); EOSINOPHILS # 0.6 10^3/ul (0.0-0.5); EOSINOPHILS % 10.5 % (0.0-7.0); HEMATOCRIT 31.5 % (42.0-52.0); HEMOGLOBIN 10.4 g/dl (14.0-18.0); LYMPHOCYTES # 1.6 10^3/ul (0.8-2.9); LYMPHOCYTES % 30.3 % (15.0-51.0); MEAN CORPUSCULAR HEMOGLOBIN 30.7 pg (29.0-33.0); MEAN CORPUSCULAR VOLUME 92.9 fl (82.0-101.0); MEAN PLATELET VOLUME 8.7 fl (7.4-10.4); MONOCYTE # 0.5 10^3/ul (0.3-0.9); MONOCYTES % 9.4 % (0.0-11.0); NEUTROPHIL # 2.7 10^3/ul (1.6-7.5); NEUTROPHILS % 49.2 % (39.0-77.0); PLATELET COUNT 184 10^3/UL (140-415); RED BLOOD COUNT 3.39 10^6/ul (4.70-6.10); RED CELL DISTRIBUTION WIDTH 13.2 % (11.5-14.5); WHITE BLOOD COUNT 5.4 10^3/ul (4.8-10.8)
[2017-01-25] MEDS: DOCUSATE SODIUM 100 MG CAP PO SCH ×2 (08:39→20:22)
[2017-01-25] MEDS: LOSARTAN 50 MG TAB PO SCH (08:39)
[2017-01-25] MEDS: FAMOTIDINE 20 MG TAB PO SCH ×2 (08:40→20:23)
[2017-01-25] MEDS: APIXABAN 5 MG TABLET PO SCH ×2 (08:40→20:23)
[2017-01-25] MEDS: GABAPENTIN 300 MG CAP PO SCH ×2 (08:40→20:23)
[2017-01-25 08:45] LABS: MAGNESIUM 1.9 mg/dl (1.7-2.5); PHOSPHORUS 4.9 mg/dl (2.5-4.9)
[2017-01-25 09:00] LABS: CALCIUM 8.6 mg/dl (8.4-10.2); CREATININE 0.87 mg/dl (0.61-1.24); POTASSIUM 4.3 mmol/L (3.5-5.1)
[2017-01-25] MEDS ORDERED: APIXABAN 5 MG TABLET PO SCH (09:00)
[2017-01-25] MEDS: VANCOMYCIN 750 MG in SOD CHLORIDE 0.9% 150 ML IVPB SCH (09:01)
--- NOTE | 2017-01-25 11:19 | RADRPT ---
PROCEDURE: XR Chest. CLINICAL INDICATION: Check Line Placement TECHNIQUE: Single frontal view of the chest was obtained COMPARISON: Chest x-ray 01/23/2017 FINDINGS: The right costophrenic angle is partially collimated off the image, limiting evaluation. There is a new right PICC line with tip projecting over the lower superior vena cava. The cardiomediastinal silhouette is within normal limits. No pneumothorax, significant pleural effusion, or consolidation is identified. There is no evidence of pulmonary vascular congestion. There are degenerative changes of the visualized spine. IMPRESSION: 1. New right PICC line with tip projecting over the lower superior vena cava. 2. No evidence of an acute cardiopulmonary process. RPTAT: QQ Physician Troy Date Time Electronically viewed and signed by Physician Troy on 01/25/2017 11:19 RC/
[2017-01-25 14:00] VITALS: BP 96/51; RESP 19
--- NOTE | 2017-01-25 15:36 | RADRPT ---
PROCEDURE: Ultrasound guidance for placement of needle in right upper extremity vein. CLINICAL INDICATION: Venous access. TECHNIQUE: Limited sonography of the right upper extremity was performed. Ultrasound images were recorded and stored in the patient's medical record. COMPARISON: None. FINDINGS: The ultrasound images demonstrate a patent right upper extremity vein. The PICC line was inserted b y the PICC line nurse. IMPRESSION: 1. Ultrasound guidance for a needle placement in a right upper extremity vein. 2. The visualized right upper extremity vein is patent. RPTAT: QQ .Kee Odom MD, MD Date Time Electronically viewed and signed by .Kee Odom MD, MD on 01/25/2017 15:36 .R/
--- NOTE | 2017-01-25 16:02 | CONS ---
Date/Time of Note Date/Time of Note DATE: 01/25/17 TIME: 15:59 Assessment/Plan Assessment/Plan Additional Assessment/Plan 1. Hypomagnesemia - resolved 2. Ischemic pain left foot, second toe ischemia/gangrene, s/p amputation of 2nd toe today 3. PVD 4. HTN- stable 5. Hyperlipidemia Plan: -s/p Surgery -IVF as orderd, IV abx zosyn + vancomycin -renally dose all abx, BP stable Dw Dr Anish Guerin Consultation Date/Type/Reason Admit Date/Time Jan 23, 2017 at 13:22 Initial Consult Date 01/23/17 Type of Consultation: NEPHROLOGY Referring Provider: JOS HARDEN 24 HR Interval Summary Free Text/Dictation s/p ray amputation left second toe , Bp stable, mag stable, afebrile, dw staff Constitutional: improved Detailed Summary Respiratory: no complaints Cardiovascular: no complaints Gastrointestinal: no complaints Genitourinary: no complaints Musculoskeletal: bone/joint pain Skin: other Exam/Review of Systems Vital Signs Vitals Vital Signs Date Time Temp Pulse Resp B/P Pulse Ox O2 Delivery O2 Flow Rate FiO2 01/25/17 08:00 97.7 60 18 148/65 100 01/24/17 11:29 Room Air Intake and Output 01/24/17 01/24/17 01/25/17 15:00 23:00 07:00 Intake Total 180 ml 980 ml 880 ml Output Total 10 ml 1200 ml Balance 170 ml 980 ml -320 ml Exam Constitutional: alert, well developed Cardiovascular: nl pulses Gastrointestinal: non-tender, soft Neurological: nl speech Results Result Diagram: 01/25/17 0711 01/25/17 0711 Results 24 hrs Laboratory Tests Test 01/24/17 16:40 01/24/17 20:05 01/25/17 07:11 01/25/17 07:51 Bedside Glucose 156 205 74 White Blood Count 5.4 Red Blood Count 3.39 L Hemoglobin 10.4 L Hematocrit 31.5 L Mean Corpuscular Volume 92.9 Mean Corpuscular Hemoglobin 30.7 Mean Corpuscular Hemoglobin Concent 33.0 Red Cell Distribution Width 13.2 Platelet Count 184 Mean Platelet Volume 8.7 Neutrophils % 49.2 Lymphocytes % 30.3 Monocytes % 9.4 Eosinophils % 10.5 H Basophils % 0.6 Nucleated Red Blood Cells % 0.0 Neutrophils # 2.7 Lymphocytes # 1.6 Monocytes # 0.5 Eosinophils # 0.6 H Basophils # 0.0 Nucleated Red Blood Cells # 0.0 Sodium Level 139 Potassium Level 4.3 Chloride Level 106 Carbon Dioxide Level 29 Anion Gap 8 Blood Urea Nitrogen 21 H Creatinine 0.87 Glucose Level 71 Calcium Level 8.6 Phosphorus Level 4.9 Magnesium Level 1.9 Vancomycin Level Trough 8.1 L Test 01/25/17 12:02 Bedside Glucose 197 Medications Medications Current Medications Carvedilol (Coreg) 6.25 mg BID PO Last administered on 01/25/17 08:40; Admin Dose 6.25 MG; Start 01/23/17 at 21:00 Docusate Sodium (Colace) 100 mg BID PO Last administered on 01/25/17 08:39; Admin Dose 100 MG; Start 01/23/17 at 21:00 Famotidine (Pepcid) 20 mg BID PO Last administered on 01/25/17 08:40; Admin Dose 20 MG; Start 01/23/17 at 21:00 Acetaminophen/ Hydrocodone Bitart ([place] (10/325)) 2 tab Q6H PRN PO PAIN LEVEL 6-10 Last administered on 01/25/17 12:40; Admin Dose 2 TAB; Start 01/23/17 at 16:00 Trazodone HCl (Desyrel) 50 mg HS PRN PO SLEEP Last administered on 01/24/17 22 :45; Admin Dose 50 MG; Start 01/23/17 at 16:00 Losartan Potassium (Cozaar) 100 mg DAILY PO Last administered on 01/25/17 08: 39; Admin Dose 100 MG; Start 01/24/17 at 09:00 Ondansetron HCl (Zofran Inj) 4 mg Q6H PRN IV NAUSEA AND/OR VOMITING; Start at 16:30 Acetaminophen (Tylenol Tab) 650 mg Q6H PRN PO PAIN LEVEL 1-3 OR FEVER Last administered on 01/23/17 22:48; Admin Dose 650 MG; Start 01/23/17 at 16:30 Acetaminophen/ Hydrocodone Bitart ([place] (5/325)) 1 tab Q6H PRN PO MODERATE PAIN LEVEL 4-6 Last administered on 01/23/17 18:09; Admin Dose 1 TAB; Start at 16:30 Acetaminophen/ Hydrocodone Bitart ([place] (5/325)) 2 tab Q6H PRN PO SEVERE PAIN LEVEL 7-10 Last administered on 01/25/17 03:53; Admin Dose 2 TAB; Start at 16:30 Morphine Sulfate (morphine) 2 mg Q4H PRN IV SEVERE PAIN LEVEL 7-10 Last administered on 01/25/17 14:38; Admin Dose 2 MG; Start 01/23/17 at 16:30 Docusate Sodium (Colace) 100 mg Q12H PRN PO CONSTIPATION; Start 01/23/17 at 16: 30 Magnesium Hydroxide (Milk Of Mag) 30 ml DAILY PRN PO CONSTIPATION; Start at 16:30 Bisacodyl (Dulcolax Supp) 10 mg DAILY PRN [place] CONSTIPATION; Start 01/23/17 at 16 :30 Miscellaneous Information 1 ea NOTE XX ; Start 01/23/17 at 16:30 Glucose (Glutose) 15 gm Q15M PRN PO DECREASED GLUCOSE; Start 01/23/17 at 16:30 Glucose (Glutose) 22.5 gm Q15M PRN PO DECREASED GLUCOSE; Start 01/23/17 at 16: 30 Dextrose (D50w Syringe) 25 ml Q15M PRN IV DECREASED GLUCOSE Last administered on 01/24/17 08:12; Admin Dose 25 ML; Start 01/23/17 at 16:30 Dextrose (D50w Syringe) 50 ml Q15M PRN IV DECREASED GLUCOSE; Start 01/23/17 at 16:30 Glucagon (Glucagen) 1 mg Q15M PRN IM DECREASED GLUCOSE; Start 01/23/17 at 16:30 Glucose (Glutose) 15 gm Q15M PRN BUCCAL DECREASED GLUCOSE; Start 01/23/17 at 16 :30 Hydralazine HCl (Apresoline) 10 mg Q6H PRN IV ELEVATED BLOOD PRESSURE; Start at 16:30 Diagnostic Test (Pha) (Accu-Chek) 1 ea 02 XX ; Start 01/24/17 at 02:00 Diagnostic Test (Pha) (Accu-Chek) 1 ea 02 XX ; Start 01/24/17 at 02:00 Insulin Glargine (Lantus) 13 unit QHS SC Last administered on 01/24/17 20:08; Admin Dose 13 UNIT; Start 01/23/17 at 21:00 Tamsulosin HCl (Flomax) 0.4 mg QHS PO Last administered on 01/24/17 19:59; Admin Dose 0.4 MG; Start 01/23/17 at 21:00 Gabapentin 600 mg 600 mg BID PO Last administered on 01/25/17 08:40; Admin Dose 600 MG; Start 01/23/17 at 21:00 Piperacillin Sod/ Tazobactam Sod (Zosyn 3.375gm/ 100 ml (Pmx)) 100 ml @ 200 mls /hr Q8 IVPB Last administered on 01/25/17 14:39; Admin Dose 200 MLS/HR; Start 01/23/17 at 22:00 Apixaban 5 mg 5 mg BID PO Last administered on 01/25/17 08:40; Admin Dose 5 MG ; Start 01/24/17 at 21:00 Vancomycin HCl/ Sodium Chloride (Vancocin/NS) 250 ml @ 83.333 mls/ hr Q12H IVPB ; Start 01/25/17 at 20:00 IV Flush (NS 10 ml) 10 ml PRN PRN IV FLUSH LINE; Start 01/25/17 at 12:30 NOEMI BUSBY Jan 25, 2017 16:02
--- NOTE | 2017-01-25 16:22 | PN ---
Date/Time of Note Date/Time of Note DATE: 01/25/17 TIME: 16:01 Assessment/Plan VTE Prophylaxis VTE Prophylaxis Intervention: other (Eliquis ) Lines/Catheters IV Catheter Type (from Nrsg): PICC Line Central line still needed: Yes (for IV abx ) Urinary Cath still in place: No Assessment/Plan Assessment/Plan 71-year-old male with: 1. Ischemic pain left foot, second toe ischemia/gangrene, s/p amputation of 2nd toe today POD#1 s/p PICC line placement today and planning for 4 weeks of abx Continue Vancomycin and Invanz x 4 weeks Pain control Eliquis resumed. 2. Diabetes mellitus, continue current insulin regimen, A1c 5.7. Resume Metformin. 3. Hypertension: Continue outpatient medications 4. Hyperlipidemia: Continue statin therapy 5. Gastroesophageal reflux disease: Continue Pepcid 6. Hypomagnesemia: resolved Prophylaxis: Eliquis to be resumed in AM, continue Pepcid for GI prophylaxis Disposition: S/p amputation of 2nd left toe, per Vascular OK to discharge to SNF vs ARU as of tomorrow, patient wants to go to ARU here at [facility] if possible otherwise preferably [facility]. Subjective 24 Hr Interval Summary Free Text/Dictation Patient doing well No complaints today Discussed with Vascular surgery, d/c plan to ARU vs SNF in AM depending on insurance auth. Will adjust abx for d/c planning Exam/Review of Systems Vital Signs Vitals Vital Signs Date Time Temp Pulse Resp B/P Pulse Ox O2 Delivery O2 Flow Rate FiO2 01/25/17 08:00 97.7 60 18 148/65 100 01/24/17 11:29 Room Air Intake and Output 01/24/17 01/24/17 01/25/17 15:00 23:00 07:00 Intake Total 180 ml 980 ml 880 ml Output Total 10 ml 1200 ml Balance 170 ml 980 ml -320 ml Exam Constitutional: alert, oriented, well developed Respiratory: clear to auscultation, normal air movement Cardiovascular: nl pulses, regular rate and rhythm Gastrointestinal: non-tender, soft Musculoskeletal: nl gait and stance, other (S/p Left 2nd toe amputation ) Extremities: other (no edema, clubbing or cyanosis ) 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, nl mental status, nl speech, nl strength Results Result Diagram: 01/25/17 0701/25/17 0711 Results 24 hrs Laboratory Tests Test 01/24/17 16:40 01/24/17 20:05 01/25/17 07:11 01/25/17 07:51 Bedside Glucose 156 205 74 White Blood Count 5.4 Red Blood Count 3.39 L Hemoglobin 10.4 L Hematocrit 31.5 L Mean Corpuscular Volume 92.9 Mean Corpuscular Hemoglobin 30.7 Mean Corpuscular Hemoglobin Concent 33.0 Red Cell Distribution Width 13.2 Platelet Count 184 Mean Platelet Volume 8.7 Neutrophils % 49.2 Lymphocytes % 30.3 Monocytes % 9.4 Eosinophils % 10.5 H Basophils % 0.6 Nucleated Red Blood Cells % 0.0 Neutrophils # 2.7 Lymphocytes # 1.6 Monocytes # 0.5 Eosinophils # 0.6 H Basophils # 0.0 Nucleated Red Blood Cells # 0.0 Sodium Level 139 Potassium Level 4.3 Chloride Level 106 Carbon Dioxide Level 29 Anion Gap 8 Blood Urea Nitrogen 21 H Creatinine 0.87 Glucose Level 71 Calcium Level 8.6 Phosphorus Level 4.9 Magnesium Level 1.9 Vancomycin Level Trough 8.1 L Test 01/25/17 12:02 Bedside Glucose 197 Medications Medications Current Medications Carvedilol (Coreg) 6.25 mg BID PO Last administered on 01/25/17 08:40; Admin Dose 6.25 MG; Start 01/23/17 at 21:00 Docusate Sodium (Colace) 100 mg BID PO Last administered on 01/25/17 08:39; Admin Dose 100 MG; Start 01/23/17 at 21:00 Famotidine (Pepcid) 20 mg BID PO Last administered on 01/25/17 08:40; Admin Dose 20 MG; Start 01/23/17 at 21:00 Acetaminophen/ Hydrocodone Bitart ([place] (10/325)) 2 tab Q6H PRN PO PAIN LEVEL 6-10 Last administered on 01/25/17 12:40; Admin Dose 2 TAB; Start 01/23/17 at 16:00 Trazodone HCl (Desyrel) 50 mg HS PRN PO SLEEP Last administered on 01/24/17 22 :45; Admin Dose 50 MG; Start 01/23/17 at 16:00 Losartan Potassium (Cozaar) 100 mg DAILY PO Last administered on 01/25/17 08: 39; Admin Dose 100 MG; Start 01/24/17 at 09:00 Ondansetron HCl (Zofran Inj) 4 mg Q6H PRN IV NAUSEA AND/OR VOMITING; Start at 16:30 Acetaminophen (Tylenol Tab) 650 mg Q6H PRN PO PAIN LEVEL 1-3 OR FEVER Last administered on 01/23/17 22:48; Admin Dose 650 MG; Start 01/23/17 at 16:30 Acetaminophen/ Hydrocodone Bitart ([place] (5/325)) 1 tab Q6H PRN PO MODERATE PAIN LEVEL 4-6 Last administered on 01/23/17 18:09; Admin Dose 1 TAB; Start at 16:30 Acetaminophen/ Hydrocodone Bitart ([place] (5/325)) 2 tab Q6H PRN PO SEVERE PAIN LEVEL 7-10 Last administered on 01/25/17 03:53; Admin Dose 2 TAB; Start at 16:30 Morphine Sulfate (morphine) 2 mg Q4H PRN IV SEVERE PAIN LEVEL 7-10 Last administered on 01/25/17 14:38; Admin Dose 2 MG; Start 01/23/17 at 16:30 Docusate Sodium (Colace) 100 mg Q12H PRN PO CONSTIPATION; Start 01/23/17 at 16: 30 Magnesium Hydroxide (Milk Of Mag) 30 ml DAILY PRN PO CONSTIPATION; Start at 16:30 Bisacodyl (Dulcolax Supp) 10 mg DAILY PRN [place] CONSTIPATION; Start 01/23/17 at 16 :30 Miscellaneous Information 1 ea NOTE XX ; Start 01/23/17 at 16:30 Glucose (Glutose) 15 gm Q15M PRN PO DECREASED GLUCOSE; Start 01/23/17 at 16:30 Glucose (Glutose) 22.5 gm Q15M PRN PO DECREASED GLUCOSE; Start 01/23/17 at 16: 30 Dextrose (D50w Syringe) 25 ml Q15M PRN IV DECREASED GLUCOSE Last administered on 01/24/17 08:12; Admin Dose 25 ML; Start 01/23/17 at 16:30 Dextrose (D50w Syringe) 50 ml Q15M PRN IV DECREASED GLUCOSE; Start 01/23/17 at 16:30 Glucagon (Glucagen) 1 mg Q15M PRN IM DECREASED GLUCOSE; Start 01/23/17 at 16:30 Glucose (Glutose) 15 gm Q15M PRN BUCCAL DECREASED GLUCOSE; Start 01/23/17 at 16 :30 Hydralazine HCl (Apresoline) 10 mg Q6H PRN IV ELEVATED BLOOD PRESSURE; Start at 16:30 Diagnostic Test (Pha) (Accu-Chek) 1 ea 02 XX ; Start 01/24/17 at 02:00 Diagnostic Test (Pha) (Accu-Chek) 1 ea 02 XX ; Start 01/24/17 at 02:00 Insulin Glargine (Lantus) 13 unit QHS SC Last administered on 01/24/17 20:08; Admin Dose 13 UNIT; Start 01/23/17 at 21:00 Tamsulosin HCl (Flomax) 0.4 mg QHS PO Last administered on 01/24/17 19:59; Admin Dose 0.4 MG; Start 01/23/17 at 21:00 Gabapentin 600 mg 600 mg BID PO Last administered on 01/25/17 08:40; Admin Dose 600 MG; Start 01/23/17 at 21:00 Piperacillin Sod/ Tazobactam Sod (Zosyn 3.375gm/ 100 ml (Pmx)) 100 ml @ 200 mls /hr Q8 IVPB Last administered on 01/25/17 14:39; Admin Dose 200 MLS/HR; Start 01/23/17 at 22:00 Apixaban 5 mg 5 mg BID PO Last administered on 01/25/17 08:40; Admin Dose 5 MG ; Start 01/24/17 at 21:00 Vancomycin HCl/ Sodium Chloride (Vancocin/NS) 250 ml @ 83.333 mls/ hr Q12H IVPB ; Start 01/25/17 at 20:00 IV Flush (NS 10 ml) 10 ml PRN PRN IV FLUSH LINE; Start 01/25/17 at 12:30 JOS HARDEN Jan 25, 2017 16:11
[2017-01-25] MEDS ORDERED: MAGNESIUM SULFATE 1 GM/D5W 100 ML IVPB ONE (16:30)
[2017-01-25] MEDS: ERTAPENEM SODIUM 1 GM in SOD CHLORIDE 0.9% 100 ML IVPB SCH (19:31)
[2017-01-25 20:20] VITALS: BP 180/77; PULSE 64; RESP 18
[2017-01-25] MEDS: VANCOMYCIN 1.25 GM in SOD CHLORIDE 0.9% 250 ML IVPB SCH (20:22)
[2017-01-25] MEDS: TAMSULOSIN (SR) 0.4 MG CAP PO SCH (20:23)
[2017-01-25] MEDS: MUPIROCIN 2% 22 GM OINT TOP SCH (20:24)
[2017-01-25] MEDS: INSULIN GLARGINE [LANtus] 3 ML PEN SC SCH (20:27)
[2017-01-25] MEDS: ACETAMINOPHEN 325 MG TAB PO PRN (20:39)
[2017-01-25] MEDS: traZODone 50 MG TAB PO PRN (20:39)
[2017-01-25 21:38] VITALS: BP 175/76; PULSE 65
[2017-01-25] MEDS: hydrALAzine 20 MG INJ IV PRN (21:39)
[2017-01-25 22:30] VITALS: BP 162/70; PULSE 79
[2017-01-26] MEDS: morphine 2 MG INJ IV PRN ×4 (01:00→21:20)
[2017-01-26 02:08] VITALS: BP 116/56; RESP 20
[2017-01-26 06:03] LABS: CALCIUM 8.2 mg/dl (8.4-10.2); CREATININE 0.75 mg/dl (0.61-1.24); POTASSIUM 4.2 mmol/L (3.5-5.1)
[2017-01-26] MEDS: INSULIN ASPART [NOVOLOG] 3 ML PEN SC SCH ×4 (07:52→20:14)
[2017-01-26 08:00] VITALS: BP 146/65; RESP 20
[2017-01-26] MEDS: GABAPENTIN 300 MG CAP PO SCH ×2 (08:37→20:14)
[2017-01-26] MEDS: FAMOTIDINE 20 MG TAB PO SCH ×2 (08:38→20:14)
[2017-01-26] MEDS: VANCOMYCIN 1.25 GM in SOD CHLORIDE 0.9% 250 ML IVPB SCH ×2 (08:38→19:17)
[2017-01-26] MEDS: MUPIROCIN 2% 22 GM OINT TOP SCH ×2 (08:38→20:15)
[2017-01-26] MEDS: DOCUSATE SODIUM 100 MG CAP PO SCH ×2 (08:38→20:13)
[2017-01-26] MEDS: APIXABAN 5 MG TABLET PO SCH ×2 (08:38→20:14)
[2017-01-26] MEDS: LOSARTAN 50 MG TAB PO SCH (08:40)
--- NOTE | 2017-01-26 09:38 | PN ---
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 -Discussed findings, plan and management with the patient. He understands. -Thank you for allowing us to partake in the care of your patient. Please call with any questions. Problems: Subjective 24 Hr Interval Summary no new vascular events overnight Exam/Review of Systems Vital Signs Vitals Vital Signs Date Time Temp Pulse Resp B/P Pulse Ox O2 Delivery O2 Flow Rate FiO2 01/26/17 08:00 98.7 62 20 146/65 100 01/25/17 20:20 Room Air Intake and Output 01/25/17 01/25/17 01/26/17 14:59 22:59 06:59 Intake Total 150 ml 1140 ml 700 ml Output Total 850 ml Balance 150 ml 1140 ml -150 ml Exam Free Text/Dictation A&Ox3 CTAB S1S2 present soft NTND BS+ LLE: palpable femoral pulse, palpable graft at the upper calf, motor/sensory intact, cap refill 2-3 seconds, toe amp site clean and intact Results Result Diagram: 01/25/17 0711 01/26/17 0445 BESS PENA MD Jan 26, 2017 09:38
--- NOTE | 2017-01-26 10:20 | PDOCDIS ---
Discharge Instructions CONDITION Patient Condition: Stable HOME CARE INSTRUCTIONS: Special Diet: vegetarian, carb controlled ACTIVITY: Activity Restrictions: Partial Weight Bearing (LLE) FOLLOW UP/APPOINTMENTS Follow-up Plan IV antibiotics for 4 weeks, PICC line in place Follow-up with Dr. Watts, vascular surgery at am[facility] within 1-2 weeks Continue wound care per Dr. Watts's instructions JOS HARDEN Jan 26, 2017 10:20
--- NOTE | 2017-01-26 10:39 | PN ---
Date/Time of Note Date/Time of Note DATE: 01/26/17 TIME: 10:36 Assessment/Plan VTE Prophylaxis VTE Prophylaxis Intervention: other (Eliquis ) Lines/Catheters IV Catheter Type (from Nrsg): PICC Line Central line still needed: Yes (IV abx) Urinary Cath still in place: No Assessment/Plan Assessment/Plan 71-year-old male with: 1. Ischemic pain left foot, second toe ischemia/gangrene, s/p amputation of 2nd toe today POD#3 s/p PICC line placement and planning for 4 weeks of abx Continue Vancomycin and Invanz x 4 weeks Pain control Eliquis resumed. 2. Diabetes mellitus, continue current insulin regimen, A1c 5.7. Well controlled on Lantus. Would d/c Metformin even as outpatient. 3. Hypertension: Continue outpatient medications 4. Hyperlipidemia: Continue statin therapy 5. Gastroesophageal reflux disease: Continue Pepcid 6. Hypomagnesemia: resolved Prophylaxis: Eliquis to be resumed in AM, continue Pepcid for GI prophylaxis Disposition: S/p amputation of 2nd left toe, per Vascular OK to discharge to SNF vs ARU today, likely to be a SNF discharge.. Wilbur notified, patient wants to go to ARU here at [facility] if possible otherwise preferably [facility] or as a 3rd choice [facility]. Subjective 24 Hr Interval Summary Free Text/Dictation Patient doing well Ok to d/c to SNF today Exam/Review of Systems Vital Signs Vitals Vital Signs Date Time Temp Pulse Resp B/P Pulse Ox O2 Delivery O2 Flow Rate FiO2 01/26/17 08:00 98.7 62 20 146/65 100 01/25/17 20:20 Room Air Intake and Output 01/25/17 01/25/17 01/26/17 15:00 23:00 07:00 Intake Total 150 ml 1140 ml 700 ml Output Total 850 ml Balance 150 ml 1140 ml -150 ml Exam Constitutional: alert, oriented, well developed Respiratory: clear to auscultation, normal air movement Cardiovascular: nl pulses, regular rate and rhythm Gastrointestinal: non-tender, soft Musculoskeletal: other (s/p left 2nd toe amputation with dressing in place ) Extremities: normal pulses, other (no edema, clubbing or cyanosis) Neurological: [employer] II-XII intact, nl mental status, nl speech, nl strength Results Result Diagram: 01/25/17 0711 01/26/17 0445 Results 24 hrs Laboratory Tests Test 01/25/17 12:02 01/25/17 17:32 01/25/17 20:18 01/26/17 04:45 Bedside Glucose 197 122 154 Sodium Level 138 Potassium Level 4.2 Chloride Level 108 Carbon Dioxide Level 27 Anion Gap 7 L Blood Urea Nitrogen 17 Creatinine 0.75 Glucose Level 115 # Calcium Level 8.2 L Magnesium Level 1.8 Test 01/26/17 07:48 Bedside Glucose 89 Medications Medications Current Medications Carvedilol (Coreg) 6.25 mg BID PO Last administered on 01/26/17 08:40; Admin Dose 6.25 MG; Start 01/23/17 at 21:00 Docusate Sodium (Colace) 100 mg BID PO Last administered on 01/26/17 08:38; Admin Dose 100 MG; Start 01/23/17 at 21:00 Famotidine (Pepcid) 20 mg BID PO Last administered on 01/26/17 08:38; Admin Dose 20 MG; Start 01/23/17 at 21:00 Acetaminophen/ Hydrocodone Bitart (Irving (10/325)) 2 tab Q6H PRN PO PAIN LEVEL 6-10 Last administered on 01/25/17 22:43; Admin Dose 2 TAB; Start 01/23/17 at 16:00 Trazodone HCl (Desyrel) 50 mg HS PRN PO SLEEP Last administered on 01/25/17 20 :39; Admin Dose 50 MG; Start 01/23/17 at 16:00 Losartan Potassium (Cozaar) 100 mg DAILY PO Last administered on 01/26/17 08: 40; Admin Dose 100 MG; Start 01/24/17 at 09:00 Ondansetron HCl (Zofran Inj) 4 mg Q6H PRN IV NAUSEA AND/OR VOMITING; Start at 16:30 Acetaminophen (Tylenol Tab) 650 mg Q6H PRN PO PAIN LEVEL 1-3 OR FEVER Last administered on 01/25/17 20:39; Admin Dose 650 MG; Start 01/23/17 at 16:30 Acetaminophen/ Hydrocodone Bitart (Irving (5/325)) 1 tab Q6H PRN PO MODERATE PAIN LEVEL 4-6 Last administered on 01/23/17 18:09; Admin Dose 1 TAB; Start at 16:30 Acetaminophen/ Hydrocodone Bitart (Irving (5/325)) 2 tab Q6H PRN PO SEVERE PAIN LEVEL 7-10 Last administered on 01/25/17 03:53; Admin Dose 2 TAB; Start at 16:30 Morphine Sulfate (morphine) 2 mg Q4H PRN IV SEVERE PAIN LEVEL 7-10 Last administered on 01/26/17 09:38; Admin Dose 2 MG; Start 01/23/17 at 16:30 Docusate Sodium (Colace) 100 mg Q12H PRN PO CONSTIPATION; Start 01/23/17 at 16: 30 Magnesium Hydroxide (Milk Of Mag) 30 ml DAILY PRN PO CONSTIPATION; Start at 16:30 Bisacodyl (Dulcolax Supp) 10 mg DAILY PRN [place] CONSTIPATION; Start 01/23/17 at 16 :30 Miscellaneous Information 1 ea NOTE XX ; Start 01/23/17 at 16:30 Glucose (Glutose) 15 gm Q15M PRN PO DECREASED GLUCOSE; Start 01/23/17 at 16:30 Glucose (Glutose) 22.5 gm Q15M PRN PO DECREASED GLUCOSE; Start 01/23/17 at 16: 30 Dextrose (D50w Syringe) 25 ml Q15M PRN IV DECREASED GLUCOSE Last administered on 01/24/17 08:12; Admin Dose 25 ML; Start 01/23/17 at 16:30 Dextrose (D50w Syringe) 50 ml Q15M PRN IV DECREASED GLUCOSE; Start 01/23/17 at 16:30 Glucagon (Glucagen) 1 mg Q15M PRN IM DECREASED GLUCOSE; Start 01/23/17 at 16:30 Glucose (Glutose) 15 gm Q15M PRN BUCCAL DECREASED GLUCOSE; Start 01/23/17 at 16 :30 Hydralazine HCl (Apresoline) 10 mg Q6H PRN IV ELEVATED BLOOD PRESSURE Last administered on 01/25/17 21:39; Admin Dose 10 MG; Start 01/23/17 at 16:30 Diagnostic Test (Pha) (Accu-Chek) 1 ea 02 XX ; Start 01/24/17 at 02:00 Diagnostic Test (Pha) (Accu-Chek) 1 ea 02 XX ; Start 01/24/17 at 02:00 Insulin Glargine (Lantus) 13 unit QHS SC Last administered on 01/25/17 20:27; Admin Dose 13 UNIT; Start 01/23/17 at 21:00 Tamsulosin HCl (Flomax) 0.4 mg QHS PO Last administered on 01/25/17 20:23; Admin Dose 0.4 MG; Start 01/23/17 at 21:00 Gabapentin (Neurontin) 600 mg BID PO Last administered on 01/26/17 08:37; Admin Dose 600 MG; Start 01/23/17 at 21:00 Apixaban 5 mg 5 mg BID PO Last administered on 01/26/17 08:38; Admin Dose 5 MG ; Start 01/24/17 at 21:00 Vancomycin HCl/ Sodium Chloride (Vancocin/NS) 250 ml @ 83.333 mls/ hr Q12H IVPB Last administered on 01/26/17 08:38; Admin Dose 83.333 MLS/HR; Start at 20:00 IV Flush (NS 10 ml) 10 ml PRN PRN IV FLUSH LINE; Start 01/25/17 at 12:30 Mupirocin 1 applic 1 applic BID TOP Last administered on 01/26/17 08:38; Admin Dose 1 APPLIC; Start 01/25/17 at 21:00; Stop 02/08/17 at 09:01 Ertapenem 1 gm/ Sodium Chloride 100 ml @ 200 mls/hr Q24H IVPB Last administered on 01/25/17 19:31; Admin Dose 200 MLS/HR; Start 01/25/17 at 18:00 Magnesium Sulfate (Magnesium Sulfate 2 Gm/50 ml) 50 ml @ 25 mls/hr ONCE ONCE IVPB ; Start 01/26/17 at 11:00; Stop 01/26/17 at 12:59 JOS HARDEN Jan 26, 2017 10:39
[2017-01-26] MEDS ORDERED: MAGNESIUM SULFATE 2 GM/50 ML 50 ML IVPB ONE (11:00)
--- NOTE | 2017-01-26 13:18 | CONS ---
Date/Time of Note Date/Time of Note DATE: 01/26/17 TIME: 13:17 Assessment/Plan Assessment/Plan Additional Assessment/Plan 1. Hypomagnesemia - resolved= 1.8 today 2. Ischemic pain left foot, second toe ischemia/gangrene, s/p amputation of 2nd toe today 3. PVD 4. HTN 5. HL Plan: -s/p Surgery today -magneisum replacement for hypomagnesemia -IVF as orderd, IV abx zosyn + vancomycin -renally dose all abx, BP stable -Transferring to SNF today Reginald Guerin Consultation Date/Type/Reason Admit Date/Time Jan 23, 2017 at 13:22 Initial Consult Date 01/23/17 Type of Consultation: NEPHROLOGY Referring Provider: JOS HARDEN 24 HR Interval Summary Free Text/Dictation feels better, denies any complaints, vss possible transfer to [facility] today- staff Constitutional: improved Detailed Summary Cardiovascular: no complaints Gastrointestinal: no complaints Genitourinary: no complaints Musculoskeletal: no complaints Exam/Review of Systems Vital Signs Vitals Vital Signs Date Time Temp Pulse Resp B/P Pulse Ox O2 Delivery O2 Flow Rate FiO2 01/26/17 08:00 98.7 62 20 146/65 100 01/25/17 20:20 Room Air Intake and Output 01/25/17 01/25/17 01/26/17 15:00 23:00 07:00 Intake Total 150 ml 1140 ml 700 ml Output Total 850 ml Balance 150 ml 1140 ml -150 ml Exam Constitutional: alert, oriented, well developed Respiratory: clear to auscultation, diminished breath sounds Cardiovascular: regular rate and rhythm Gastrointestinal: non-tender, soft Musculoskeletal: other Extremities: normal pulses Neurological: nl mental status, nl speech Results Result Diagram: 01/25/17 0711 01/26/17 0445 Results 24 hrs Laboratory Tests Test 01/25/17 17:32 01/25/17 20:18 01/26/17 04:45 01/26/17 07:48 Bedside Glucose 122 154 89 Sodium Level 138 Potassium Level 4.2 Chloride Level 108 Carbon Dioxide Level 27 Anion Gap 7 L Blood Urea Nitrogen 17 Creatinine 0.75 Glucose Level 115 # Calcium Level 8.2 L Magnesium Level 1.8 Test 01/26/17 11:52 Bedside Glucose 170 Medications Medications Current Medications Carvedilol (Coreg) 6.25 mg BID PO Last administered on 01/26/17 08:40; Admin Dose 6.25 MG; Start 01/23/17 at 21:00 Docusate Sodium (Colace) 100 mg BID PO Last administered on 01/26/17 08:38; Admin Dose 100 MG; Start 01/23/17 at 21:00 Famotidine (Pepcid) 20 mg BID PO Last administered on 01/26/17 08:38; Admin Dose 20 MG; Start 01/23/17 at 21:00 Acetaminophen/ Hydrocodone Bitart (Gilbert (10/325)) 2 tab Q6H PRN PO PAIN LEVEL 6-10 Last administered on 01/25/17 22:43; Admin Dose 2 TAB; Start 01/23/17 at 16:00 Trazodone HCl (Desyrel) 50 mg HS PRN PO SLEEP Last administered on 01/25/17 20 :39; Admin Dose 50 MG; Start 01/23/17 at 16:00 Losartan Potassium (Cozaar) 100 mg DAILY PO Last administered on 01/26/17 08: 40; Admin Dose 100 MG; Start 01/24/17 at 09:00 Ondansetron HCl (Zofran Inj) 4 mg Q6H PRN IV NAUSEA AND/OR VOMITING; Start at 16:30 Acetaminophen (Tylenol Tab) 650 mg Q6H PRN PO PAIN LEVEL 1-3 OR FEVER Last administered on 01/25/17 20:39; Admin Dose 650 MG; Start 01/23/17 at 16:30 Acetaminophen/ Hydrocodone Bitart (Gilbert (5/325)) 1 tab Q6H PRN PO MODERATE PAIN LEVEL 4-6 Last administered on 01/23/17 18:09; Admin Dose 1 TAB; Start at 16:30 Acetaminophen/ Hydrocodone Bitart (Gilbert (5/325)) 2 tab Q6H PRN PO SEVERE PAIN LEVEL 7-10 Last administered on 01/25/17 03:53; Admin Dose 2 TAB; Start at 16:30 Morphine Sulfate (morphine) 2 mg Q4H PRN IV SEVERE PAIN LEVEL 7-10 Last administered on 01/26/17 09:38; Admin Dose 2 MG; Start 01/23/17 at 16:30 Docusate Sodium (Colace) 100 mg Q12H PRN PO CONSTIPATION; Start 01/23/17 at 16: 30 Magnesium Hydroxide (Milk Of Mag) 30 ml DAILY PRN PO CONSTIPATION; Start at 16:30 Bisacodyl (Dulcolax Supp) 10 mg DAILY PRN [place] CONSTIPATION; Start 01/23/17 at 16 :30 Miscellaneous Information 1 ea NOTE XX ; Start 01/23/17 at 16:30 Glucose (Glutose) 15 gm Q15M PRN PO DECREASED GLUCOSE; Start 01/23/17 at 16:30 Glucose (Glutose) 22.5 gm Q15M PRN PO DECREASED GLUCOSE; Start 01/23/17 at 16: 30 Dextrose (D50w Syringe) 25 ml Q15M PRN IV DECREASED GLUCOSE Last administered on 01/24/17 08:12; Admin Dose 25 ML; Start 01/23/17 at 16:30 Dextrose (D50w Syringe) 50 ml Q15M PRN IV DECREASED GLUCOSE; Start 01/23/17 at 16:30 Glucagon (Glucagen) 1 mg Q15M PRN IM DECREASED GLUCOSE; Start 01/23/17 at 16:30 Glucose (Glutose) 15 gm Q15M PRN BUCCAL DECREASED GLUCOSE; Start 01/23/17 at 16 :30 Hydralazine HCl (Apresoline) 10 mg Q6H PRN IV ELEVATED BLOOD PRESSURE Last administered on 01/25/17 21:39; Admin Dose 10 MG; Start 01/23/17 at 16:30 Diagnostic Test (Pha) (Accu-Chek) 1 ea 02 XX ; Start 01/24/17 at 02:00 Diagnostic Test (Pha) (Accu-Chek) 1 ea 02 XX ; Start 01/24/17 at 02:00 Insulin Glargine (Lantus) 13 unit QHS SC Last administered on 01/25/17 20:27; Admin Dose 13 UNIT; Start 01/23/17 at 21:00 Tamsulosin HCl (Flomax) 0.4 mg QHS PO Last administered on 01/25/17 20:23; Admin Dose 0.4 MG; Start 01/23/17 at 21:00 Gabapentin (Neurontin) 600 mg BID PO Last administered on 01/26/17 08:37; Admin Dose 600 MG; Start 01/23/17 at 21:00 Apixaban 5 mg 5 mg BID PO Last administered on 01/26/17 08:38; Admin Dose 5 MG ; Start 01/24/17 at 21:00 Vancomycin HCl/ Sodium Chloride (Vancocin/NS) 250 ml @ 83.333 mls/ hr Q12H IVPB Last administered on 01/26/17 08:38; Admin Dose 83.333 MLS/HR; Start at 20:00 IV Flush (NS 10 ml) 10 ml PRN PRN IV FLUSH LINE; Start 01/25/17 at 12:30 Mupirocin 1 applic 1 applic BID TOP Last administered on 01/26/17 08:38; Admin Dose 1 APPLIC; Start 01/25/17 at 21:00; Stop 02/08/17 at 09:01 Ertapenem/Sodium Chloride (Invanz/NS) 100 ml @ 200 mls/hr Q24H IVPB Last administered on 01/25/17 19:31; Admin Dose 200 MLS/HR; Start 01/25/17 at 18:00 NOEMI BUSBY Jan 26, 2017 13:18
[2017-01-26 14:00] VITALS: BP 145/66; RESP 19
[2017-01-26] MEDS: ERTAPENEM SODIUM 1 GM in SOD CHLORIDE 0.9% 100 ML IVPB SCH (17:23)
[2017-01-26] MEDS: HYDROCODONE/APAP (10/325) TAB PO PRN (18:48)
[2017-01-26 19:50] VITALS: BP 161/70; RESP 20
[2017-01-26] MEDS: TAMSULOSIN (SR) 0.4 MG CAP PO SCH (20:14)
[2017-01-26] MEDS: traZODone 50 MG TAB PO PRN (20:15)
[2017-01-26] MEDS: INSULIN GLARGINE [LANtus] 3 ML PEN SC SCH (20:16)
[2017-01-26] MEDS: ACCU-CHEK XX SCH ×2 (20:17)
[2017-01-26 21:20] VITALS: BP_SYST 157; BP_SYST 167; BP_DIAS 70; BP_DIAS 72; PULSE 77; PULSE 94
[2017-01-26] MEDS: hydrALAzine 20 MG INJ IV PRN (21:21)
[2017-01-26 22:00] VITALS: BP 130/64; PULSE 93; RESP 18
== END 2017-01-26 22:55 | DRG 617 ==
LOC: PP2 13:22
PROVIDERS: ADMIT Internal Medicine; ATTEND Internal Medicine
PROC: 0Y6S0Z0 Detachment at Left 2nd Toe, Complete, Open Approach (ICD-10-PCS; principal; 2017-01-24 09:30)
PROC: 02HV33Z Insertion of Infusion Device into Superior Vena Cava, Percutaneous Approach (ICD-10-PCS; 2017-01-25)
PROC: B54MZZA Ultrasonography of Right Upper Extremity Veins, Guidance (ICD-10-PCS; 2017-01-25)
PROC: 3E0234Z Introduction of Serum, Toxoid and Vaccine into Muscle, Percutaneous Approach (ICD-10-PCS; 2017-01-25)
DX: E11.621 Type 2 diabetes mellitus with foot ulcer (principal); E11.52 Type 2 diabetes mellitus with diabetic peripheral angiopathy with gangrene; L97.523 Non-pressure chronic ulcer of other part of left foot with necrosis of muscle; I70.262 Atherosclerosis of native arteries of extremities with gangrene, left leg; E83.42 Hypomagnesemia; I70.201 Unspecified atherosclerosis of native arteries of extremities, right leg; E78.5 Hyperlipidemia, unspecified; I10 Essential (primary) hypertension; K21.9 Gastro-esophageal reflux disease without esophagitis; Z87.891 Personal history of nicotine dependence; Z23 Encounter for immunization; Z79.4 Long term (current) use of insulin
CPT/HCPCS: 36569; 71010; 76937; 80048; 80202; 81003; 82962; 83036; 83735; 84100; 85025; 85610; 85730; 87040; 87081; 88305; 90686; 93005; 93922; 97163; J0131; J0360; J1335; J1815; J2270; J2543; J3370; J3475; J7050

== ENCOUNTER 2017-10-28 06:14 | Day surgery (SDC) | END 2017-10-28 10:35 | disposition home or self-care (01) ==

== ENCOUNTER 2017-11-11 06:37 | Day surgery (SDC) | END 2017-11-11 10:25 | disposition home or self-care (01) ==

== ENCOUNTER 2017-12-02 06:01 | Day surgery (SDC) | END 2017-12-02 10:45 | disposition home or self-care (01) ==